=== PATIENT | female | born 1955 | race Caucasian/White ===

== ENCOUNTER 2017-12-03 11:02 | Emergency (ER) | payer OTHER, SELFPAY ==
[2017-12-03 11:05] VITALS: BP 190/86; PULSE 72; RESP 13; TEMP 36.4; O2SAT 98
--- NOTE | 2017-12-03 12:34 | DI.RAD.S_ITS ---
PROCEDURE: XR SHOULDER RT MIN 2V INDICATIONS: shoulder pain TECHNIQUE: 3 views of the shoulder were acquired. COMPARISON: None. FINDINGS: Bones: No fractures or dislocations. No suspicious bony lesions. Visualized ribs appear intact. Degenerative changes are seen, including mild subacromial spurring. Sternotomy wires are seen. Soft tissues: No suspicious soft tissue calcifications. The visualized lung demonstrates an unremarkable appearance. IMPRESSION: Degenerative changes are seen, without an acute bony abnormality identified. If there is point tenderness (or other clinical suspicion for a fracture not seen on these images) then a dedicated CT could be considered for further evaluation, as clinically appropriate. If there is strong clinical suspicion for internal derangement of this joint, please consider a dedicated MRI for further evaluation (assuming that there is no contraindication to MRI). Dictated by: Agustín Hernandez M.D. on 12/03/2017 at 12:01 Approved by: Agustín Hernandez M.D. on 12/03/2017 at 12:02
--- NOTE | 2017-12-03 12:40 | ED_ITS ---
HPI - Extremity Problem <YASIR Gonzalez-BC - Last Filed: 12/03/17 14:58> General Chief complaint: Extremity Problem,Nontraumatic Stated complaint: rt arm pain getting worse Time Seen by Provider: 12/03/17 12:24 Source: patient and family Mode of arrival: ambulatory Limitations: no limitations History of Present Illness HPI Narrative: Patient presents with her chief complaint of right arm pain. She states she had right shoulder pain several years ago and was given a cortisone injection by her PCP. She states her pain was acting up recently so she had another steroid injection done on Sunday. She complains of consistent right arm pain since her steroid injection on Sunday. She states that her whole right arm hurts. She denies any numbness tingling or weakness or swelling or concerns about circulation. She states she has never had x-rays done on her shoulder. She denies any fevers nausea vomiting diarrhea. She has taken naproxen for the pain but has not had anything today. Ice makes the pain worse. Warmth makes the pain better. Pain is worse with movement and pressure. Related Data Home Medications Medication Instructions Recorded Confirmed Januvia 12/03/17 Metoprolol 12/03/17 Prilosec BID 12/03/17 Prozac 12/03/17 atorvastatin 1 tab PO QPM 12/03/17 12/03/17 glipizide 12/03/17 lisinopril 12/03/17 metformin 12/03/17 Previous Rx's Medication Instructions Recorded cyclobenzaprine 10 mg PO TID PRN #20 tab 12/03/17 Allergies Allergy/AdvReac Type Severity Reaction Status Date / Time Sulfa (Sulfonamide Allergy Severe Rash Verified 12/03/17 12:28 Antibiotics) Review of Systems <YASIR Gonzalez-BC - Last Filed: 12/03/17 14:58> Review of Systems GENERAL: Denies chills, fatigue, malaise, fever, sweats. HEENT: Denies sinus pain, ear pain, sore throat, difficulty swallowing, dizziness. RESPIRATORY: Denies dyspnea, cough, wheezing, hemoptysis, sputum. CARDIOVASCULAR: Denies chest pain, palpitations, orthopnea, edema, GASTROINTESTINAL: Denies nausea, vomiting, abdominal pain, diarrhea, constipation, melena. : Denies dysuria, frequency, incontinence, hematuria, urinary retention. MUSCULOSKELETAL: See HPI SKIN: Denies rash, skin lesions, or other NEUROLOGIC: Denies weakness, headache, numbness, change in speech, confusion, seizures, incoordination. PSYCHIATRIC: No concerning psychosocial issues. 12 point review of systems is negative except for those stated above Exam <Aaliyah YASIR Perea-BC - Last Filed: 12/03/17 14:58> Narrative Exam Narrative: GENERAL: This is a well-nourished, well-developed patient, appears uncomfortable holding right armpit HEAD: Atraumatic. Normocephalic. No temporal or scalp tenderness. EYES: Pupils equal round and reactive. Extraocular motions intact. No scleral icterus. No injection or drainage. ENT: Nose without bleeding, purulent drainage or septal hematoma. Throat without erythema, tonsillar hypertrophy or exudate. Uvula midline. Airway patent. NECK: Trachea midline. No JVD or lymphadenopathy. Supple, nontender, no meningeal signs. CARDIOVASCULAR: Regular rate and rhythm without murmurs, gallops, or rubs. RESPIRATORY: Clear to auscultation. Breath sounds equal bilaterally. No wheezes , rales, or rhonchi. GASTROINTESTINAL: Abdomen soft, non-tender, nondistended. No hepato-splenomegaly , or palpable masses. No guarding. EXTREMITIES: Diffuse tenderness to palpation right arm. Right radial pulse is intact. No swelling noted right arm. Patient is able to pronate and supinate right arm. Patient is noted to have decreased flexion of right shoulder she was able to flex to approximately 120?. She is able to hyperextend right shoulder. Capillary refill less than 2 sec all fingers right hand. Strength is intact right hand. BACK: Nontender without deformity or crepitance. No flank tenderness. NEURO: AOx3. SKIN: No rash or erythema. No rash erythema or ecchymosis noted right arm. No evidence of abnormality regarding joint injection site right shoulder pain Initial Vital Signs Initial Vital Signs: Vital Signs Temperature 97.6 F 12/03/17 11:05 Pulse Rate 72 12/03/17 11:05 Respiratory Rate 13 12/03/17 11:05 Blood Pressure 190/86 H 12/03/17 11:05 Pulse Oximetry 98 12/03/17 11:05 <Tammy Noel DO - Last Filed: 12/04/17 08:01> Initial Vital Signs Initial Vital Signs: Vital Signs Temperature 97.6 F 12/03/17 11:05 Pulse Rate 72 12/03/17 11:05 Respiratory Rate 13 12/03/17 11:05 Blood Pressure 190/86 H 12/03/17 11:05 Pulse Oximetry 98 12/03/17 11:05 Course <SANDI Gonzalez - Last Filed: 12/03/17 14:58> Orders Ordered: Discontinued Medications Cyclobenzaprine HCl (Flexeril) 5 mg PO NOW ONE Stop: 12/03/17 12:35 Last Admin: 12/03/17 13:07 Dose: 5 mg Ketorolac Tromethamine (Toradol) 30 mg IM NOW ONE Stop: 12/03/17 12:35 Last Admin: 12/03/17 13:07 Dose: 30 mg Patient received Flexeril and Toradol in the emergency department. She stated this helped her improve her pain a lot. She noted the range of motion was increased after medication. Vital Signs - 8 hr 12/03/17 11:05 12/03/17 14:21 Temperature 97.6 F Pulse Rate 72 66 Respiratory Rate 13 Blood Pressure 190/86 H Blood Pressure [Left Arm] 186/81 H Pulse Oximetry 98 97 <Tmamy Noel DO - Last Filed: 12/04/17 08:01> Orders Ordered: Discontinued Medications Cyclobenzaprine HCl (Flexeril) 5 mg PO NOW ONE Stop: 12/03/17 12:35 Last Admin: 12/03/17 13:07 Dose: 5 mg Ketorolac Tromethamine (Toradol) 30 mg IM NOW ONE Stop: 12/03/17 12:35 Last Admin: 12/03/17 13:07 Dose: 30 mg Vital Signs - 8 hr 12/03/17 11:05 12/03/17 14:21 Temperature 97.6 F Pulse Rate 72 66 Respiratory Rate 13 Blood Pressure 190/86 H Blood Pressure [Left Arm] 186/81 H Pulse Oximetry 98 97 MDM - Extremity (Nontraumatic) <SANDI Gonzalez - Last Filed: 12/03/17 14:58> Imaging Data shoulder xray : Radiologist's impression: ROCEDURE: XR SHOULDER RT MIN 2V INDICATIONS: shoulder pain TECHNIQUE: 3 views of the shoulder were acquired. COMPARISON: None. FINDINGS: Bones: No fractures or dislocations. No suspicious bony lesions. Visualized ribs appear intact. Degenerative changes are seen, including mild subacromial spurring. Sternotomy wires are seen. Soft tissues: No suspicious soft tissue calcifications. The visualized lung demonstrates an unremarkable appearance. IMPRESSION: Degenerative changes are seen, without an acute bony abnormality identified. If there is point tenderness (or other clinical suspicion for a fracture not seen on these images) then a dedicated CT could be considered for further evaluation, as clinically appropriate. If there is strong clinical suspicion for internal derangement of this joint, please consider a dedicated MRI for further evaluation (assuming that there is no contraindication to MRI). Dictated by: Agustín Hernandez M.D. on 12/03/2017 at 12:01 Approved by: Agustín Hernandez M.D. on 12/03/2017 at 12:02 MDM Narrative Medical decision making narrative: Patient presents with chief complaint of right arm pain after steroid injection done by PCP on Sunday. I did a x-ray as she states she has never had one before. She has good range of motion and no signs of systemic symptoms ruling out a septic joint. Her pain appears to have started with the steroid injection. She has no swelling or no signs of decreased circulation. Her pain much improved after the Toradol as well as the Flexeril. I encourage follow-up primary care. I did discuss that steroid injections can worsened pain for the improved the pain. She had no questions or concerns upon discharge. Discussed return precautions of concerns for stroke , SD, neurological compromise. Discharge Plan Departure Patient Disposition: Home Clinical Impression: Arm pain Discharge Date/Time: 12/03/17 14:29 Interventions: ED Discharge Assessment Last Done: 12/03/17 14:28 Instructions: How To Perform RICE (Rest, Ice, Compress, Elevate), DI for Arm Pain, Joint Injection Activity Restrictions/Additional Instructions: I am given you a prescription of a muscle relaxer to use as needed. Please monitor for fever, worsening or no improvement. Please follow-up with primary care provider. He can also take naproxen twice a day. Please do not take that until 8 hr after the Toradol injection we gave you in the emergency department. Monitor for joint swelling, worsening pain, numbness or tingling. You can also use heat or ice as needed. Monitor for signs and symptoms of infection including fever, redness at the injection sites etc. Prescriptions: New cyclobenzaprine 10 mg tablet 10 mg PO TID PRN (Reason: muscle spasm) Qty: 20 RF: 0 No Action Januvia RF: 0 Metoprolol RF: 0 Prilosec BID RF: 0 Prozac RF: 0 atorvastatin 1 tab PO QPM RF: 0 glipizide RF: 0 lisinopril RF: 0 metformin RF: 0 Referrals: Dillon Castanon MD [Primary Care Provider] - <Tammy Noel DO - Last Filed: 12/04/17 08:01> Cosign ED Attending Cosignature Attestation: I was immediately available in the department for consultation. Documentation has been reviewed. I agree with assessment and plan.
[2017-12-03] MEDS: KETOROLAC 60 MG/2 ML VIAL 30 MG IM (13:07)
[2017-12-03] MEDS: CYCLOBENZAPRINE 5 MG TABLET PO (13:07)
[2017-12-03 14:21] VITALS: BP 186/81; PULSE 66; O2SAT 97
--- NOTE | 2017-12-06 16:19 | PC.NURSE ---
follow up call, n/a
== END 2017-12-03 14:29 | disposition home or self-care (01) ==
PROVIDERS: Emergency Provider Nurse Practitioner Family; PCP Family Medicine
DX: M79.601 Pain in right arm (principal)
CPT/HCPCS: 73030; 96372; 99283; J1885

== ENCOUNTER → 2018-04-24 08:46 | Outpatient (CLI) | payer OTHER, SELFPAY ==
--- NOTE | 2018-04-24 | DI.MRI.S_ITS ---
PROCEDURE: MR SHOULDER RT WO CON INDICATIONS: ACUTE PAIN OF RIGHT SHOULDER TECHNIQUE: Noncontrast oblique coronal T2 fast spin echo with fat saturation, oblique sagittal T1 spin echo and T2 fast spin echo with fat saturation, axial T1 spin echo and T2 fast spin echo with fat saturation through the shoulder. COMPARISON: None. FINDINGS: Image quality: Excellent. Rotator cuff: Supraspinatus tendinopathy with partial-thickness articular and bursal sided tear at the critical zone/footprint. Cannot entirely exclude pinpoint full-thickness perforation in particular image 9 series 8. No large full-thickness or retracted defect is seen. Infraspinatus tendinopathy, with interstitial tearing and bursal surface fraying. There is also partial-thickness articular sided tear. Teres minor appears intact. Subscapularis tendon is mildly thickened with low-grade bursal and articular surface fraying. There is atrophy of the supraspinatus muscle. Diffuse fatty infiltration of the rotator cuff musculature. Bones and bursae: No bone marrow contusions or fractures. Moderate acromioclavicular joint degeneration. The acromion demonstrates conventional anatomy, without an os acromiale. Moderate subacromial/subdeltoid bursal fluid. Capsule and soft tissues: No discrete intrasubstance fluid signal intensity to suggest labral tear. There is a blunted appearance of the posterior labrum which is probably age-appropriate. No definite posterior subluxation of the humeral head relative to the glenoid. There is mild hypertrophic appearance of the anteroinferior labrum which could be labrocapsuloligamentous variation, versus chronic tear with scarring. The long head of the biceps tendon demonstrates normal location and morphology. The rotator interval appears normal, without fibrosis. The coracohumeral ligament is normal in thickness. IMPRESSION: Supraspinatus tendinopathy with partial thickness articular and bursal sided tear, and possible pinpoint full-thickness perforation although no large or retracted full-thickness defect. Infraspinatus tendinopathy with interstitial tearing, bursal surface fraying and partial-thickness articular sided tear. Subscapularis tendinopathy with low-grade bursal and articular surface fraying. Atrophy of the supraspinatus muscle. Moderate subacromial/subdeltoid bursitis. Ill-defined blunting of the posterior labrum which could be age-appropriate degeneration. Please correlate clinically. Dictated by: Danny Wayne M.D. on 04/24/2018 at 11:00 Approved by: Danny Wayne M.D. on 04/24/2018 at 11:09
== END ==
PROVIDERS: PCP Family Medicine; Visit Provider Orthopaedic Surgery
DX: M25.511 Pain in right shoulder (principal); M75.111 Incomplete rotator cuff tear or rupture of right shoulder, not specified as traumatic; M75.51 Bursitis of right shoulder; M62.521 Muscle wasting and atrophy, not elsewhere classified, right upper arm
CPT/HCPCS: 73221

== ENCOUNTER → 2018-09-25 12:38 | Outpatient (CLI) | payer OTHER, SELFPAY ==
--- NOTE | 2018-09-25 | DI.MRI.S_ITS ---
PROCEDURE: MR SHOULDER RT W CON INDICATIONS: Complete rotator cuff tear or rupture of right kike TECHNIQUE: After the administration of 12 mL of dilute intra-articular Gadolinium contrast, oblique coronal T1 and T2 spin echo with fat saturation, oblique sagittal T1 spin echo with and without fat saturation, oblique sagittal T2 fast spin echo with fat saturation, axial T1 spin echo with fat saturation through the shoulder. COMPARISON: [facility], MR, MR SHOULDER RT WO CON, 04/24/2018, 9:37. FINDINGS: Image quality: Diagnostic Rotator cuff: No definite full-thickness tear the rotator cuff is present. However, there is an irregular moderate to high grade articular surface partial thickness tear evident involving the distal supraspinatus and infraspinatus tendons, which may partly propagate along the infraspinatus myotendinous junction. A similar appearance is also present involving the subscapularis tendon. The teres minor tendon is intact. Mild rotator cuff muscle atrophy is relatively symmetric. Bones and bursae: No acute fracture, dislocation, or suspicious osseous lesion is identified involving the osseous structures of the right shoulder. Postoperative changes along the anterior aspect of the greater tuberosity of the humeral head is present, suggesting either biceps tenodesis or rotator cuff repair. There mild degenerative changes of the glenohumeral joint. Postoperative changes of the acromio clavicular joint appear to be present. There is adequate distention of the glenohumeral joint with the injected contrast. No loose intra-articular joint bodies are identified. None of the intra-articular contrast is definitely seen extending into the subacromial subdeltoid bursa to suggest a nonvisualized full-thickness tear of the rotator cuff. Capsule and soft tissues: Blunting along the free edge of the entire posterior labrum is identified, suspicious for a posterior labral tear versus partial resection of the posterior labrum. No detached labral fragment or large paralabral cysts are evident. The long head of the biceps tendon is not clearly evident attaching to the biceps anchor, suggesting interval biceps tenodesis or full-thickness tear. This tendon is not seen within the bicipital groove and it probably is retracted beyond the bicipital groove. No acute injuries are suspected involving the glenohumeral ligaments. IMPRESSION: 1. Moderate to high-grade articular surface partial-thickness tearing of the rotator cuff tendons is more prominent involving the supraspinatus and subscapularis tendons. There may be an interstitial/delaminating partial-thickness component extending along the infraspinatus myotendinous junction. 2. The biceps tendon is not seen within the bicipital groove and appears to be retracted beyond the bicipital groove, distally. There may have been interval biceps tenodesis with tearing of the reattached tendon. Please correlate clinically. 3. Blunting along the free edge of the posterior labrum may be postoperative or related to degenerative labral tearing. 4. Interval postoperative changes of the acromio clavicular joint. 5. Mild degenerative changes of the glenohumeral joint. Dictated by: Arjun Gill M.D. on 09/25/2018 at 15:23 Approved by: Arjun Gill M.D. on 09/25/2018 at 15:27
--- NOTE | 2018-09-25 | DI.RAD.S_ITS ---
PROCEDURE: FL SHOULDER INJECTION MR/CT RT INDICATIONS: Complete rotator cuff tear or rupture of right kike TECHNIQUE: The indications, alternatives, benefits, risks, and complications of the procedure were explained to the patient. Written informed consent was obtained and placed in the chart. The shoulder was examined fluoroscopically and a site for needle placement chosen for entry into the glenohumeral joint from an anterior approach. The skin was prepped and draped in a sterile fashion, and 1% lidocaine infiltrated from skin down to joint capsule. A spinal needle was inserted into the glenohumeral joint, and a small amount of iodinated contrast media injected to confirm intra-articular placement of the needle tip. This was followed by approximately 12 mL dilute solution of a gadolinium containing MR contrast agent. The needle was removed and a dressing was applied. The patient was given postprocedural instructions and sent to the MR suite for MR imaging. FINDINGS: A single fluoroscopic spot image demonstrates intra-articular location of injected iodinated contrast. IMPRESSION: Successful fluoroscopically guided administration of dilute Gadolinium solution into the shoulder joint for MR arthrogram. Dictated by: Danny Wayne M.D. on 09/25/2018 at 16:02 Approved by: Danny Wayne M.D. on 09/25/2018 at 16:04
== END ==
PROVIDERS: PCP Family Medicine; Visit Provider Orthopaedic Surgery
DX: M75.111 Incomplete rotator cuff tear or rupture of right shoulder, not specified as traumatic (principal)
CPT/HCPCS: 23350; 73222; 77002

== ENCOUNTER → 2019-03-04 13:51 | Outpatient (CLI) | payer MEDICARE, OTHER, SELFPAY ==
[2019-03-04 15:06] LABS: Add Manual Diff / Slide Review NO; Basophils Absolute Auto 100 /uL (0-100); Basophils Percent Auto 0.9 % (0-2); Eosinophils Absolute Auto 300 /uL (0-450); Eosinophils Percent Auto 3.1 % (2-4); Hematocrit 47.1 % (36-46); Hemoglobin 15.6 g/dL (12.0-16.0); Lymphocytes Absolute Auto 2300 /uL (1100-4500); Lymphocytes Percent Auto 27.8 % (25-40); Mean Corpuscular HGB Conc 33.2 % (30-36); Mean Corpuscular Hemoglobin 30.4 PG (26-34); Mean Corpuscular Volume 91.7 fL (80-100); Monocytes Absolute Auto 700 /uL (0-900); Monocytes Percent Auto 7.9 % (3-14); Neutrophils Absolute Auto 5100 /uL (1500-7000); Neutrophils Percent Auto 60.3 % (50-75); Platelet Count 218 X10^3/uL (150-400); Red Blood Cell Count 5.14 X10^6/uL (4.0-5.2); Red Cell Distribution Width 14.3 % (11.6-14.8); White Blood Cell Count 8.4 X10^3/uL (4.5-11.0)
[2019-03-04 16:09] LABS: Hemoglobin A1C% w Est Avg Glu 10.2 % (4.0-6.0)
== END ==
PROVIDERS: PCP Family Medicine; Visit Provider Podiatrist
DX: Z01.818 Encounter for other preprocedural examination (principal); Z01.812 Encounter for preprocedural laboratory examination; R73.9 Hyperglycemia, unspecified
CPT/HCPCS: 36415; 83036; 85025; 93005

== ENCOUNTER 2019-05-08 13:21 | Inpatient (IN) | payer OTHER, MEDICARE, SELFPAY ==
[2019-05-08] VITALS (11 sets, daily range): BP systolic 89–133; BP diastolic 50–76; PULSE 67–95; RESP 13–28; TEMP 36.3–36.8; O2SAT 91–96; BMI 31.7
--- NOTE | 2019-05-08 14:00 | DI.RAD.S_ITS ---
PROCEDURE: XR ACUTE ABDOMEN SERIES INDICATIONS: sob, abd pain TECHNIQUE: One view chest and two views of the abdomen were acquired. COMPARISON: None. FINDINGS: Surgical changes and devices: Median sternotomy wires are seen. Surgical clips are noted in gallbladder fossa. Chest: Lungs are clear. Heart size is normal. No pleural effusions. No pneumoperitoneum. Abdomen: Bowel gas pattern is normal. No suspicious calcifications. Visualized solid organ contours appear normal. Bones: No suspicious bony lesions. IMPRESSION: No evidence of bowel obstruction or gross free air. No acute cardiopulmonary pathology. Dictated by: Jani Chowdhury M.D. on 05/08/2019 at 15:51 Approved by: Jani Chowdhury M.D. on 05/08/2019 at 15:54
[2019-05-08 14:15] LABS: Add Manual Diff / Slide Review NO; Basophils Absolute Auto 100 /uL (0-100); Basophils Percent Auto 0.5 % (0-2); Eosinophils Absolute Auto 0 /uL (0-450); Eosinophils Percent Auto 0.4 % (2-4); Hematocrit 45.6 % (36-46); Hemoglobin 15.3 g/dL (12.0-16.0); Lymphocytes Absolute Auto 1500 /uL (1100-4500); Mean Corpuscular HGB Conc 33.6 % (30-36); Mean Corpuscular Hemoglobin 30.5 PG (26-34); Mean Corpuscular Volume 90.7 fL (80-100); Monocytes Absolute Auto 1100 /uL (0-900); Monocytes Percent Auto 9.8 % (3-14); Neutrophils Absolute Auto 8100 /uL (1500-7000); Neutrophils Percent Auto 75.3 % (50-75); Platelet Count 277 X10^3/uL (150-400); Red Blood Cell Count 5.02 X10^6/uL (4.0-5.2); White Blood Cell Count 10.8 X10^3/uL (4.5-11.0)
[2019-05-08] MEDS: ONDANSETRON 4 MG/2 ML INJ IV ×2 (14:25→20:01)
[2019-05-08] MEDS: SODIUM CHLORIDE 0.9% 500 ML 1000 ML IV (14:25)
[2019-05-08 14:28] LABS: Amylase 74 U/L (30-110); Lipase 101 U/L (23-300)
[2019-05-08 14:30] LABS: Alanine Aminotransferase 37 IU/L (<35); Albumin 4.3 g/dL (3.5-5.0); Albumin Globulin Ratio 1.2 (1.0-2.8); Alkaline Phosphatase 99 U/L (38-126); Aspartate Aminotransferase 44 IU/L (14-36); BUN Creatinine Ratio 16.4 (6-22); Bilirubin Total 0.7 mg/dL (0.2-1.3); Blood Urea Nitrogen 10 mg/dL (7-17); Calcium 9.4 mg/dL (8.4-10.2); Carbon Dioxide 21 mmol/L (22-32); Chloride 104 mmol/L (98-107); Estimated Glomerular Filt Rate > 60.0 mL/min (>60); Globulin 3.5 g/dL (1.7-4.1); Glucose 125 mg/dL (80-110); Lactate (Lactic Acid) 1.9 mmol/L (0.7-2.1); Potassium 3.6 mmol/L (3.4-5.1); Sodium 137 mmol/L (137-145); Total Protein 7.8 g/dL (6.3-8.2)
[2019-05-08 14:37] LABS: Magnesium 0.9 mg/dL (1.6-2.3)
--- NOTE | 2019-05-08 14:52 | ED.GENADULT ---
HPI - General Adult <Juan Pablo Sadler [employer] - Last Filed: 05/08/19 20:21> General Chief complaint: Upper Respiratory Symptoms Stated complaint: Sick For 2 Weeks Time Seen by Provider: 05/08/19 13:46 Source: patient and family Mode of arrival: Ambulatory Limitations: no limitations History of Present Illness HPI narrative: The patient is a 64-year-old female nonsmoker with history of hypertrophic cardiomyopathy, myectomy, hypertension, hyper lipidemia who presents with her for chief complaint of general malaise for the past 2-3 weeks. She states it started several weeks ago when she thought she had the flu, she had sore throat, then cough, the general malaise. The past week she has developed loose stools. She states she feels short of breath. She denies any chest pain. She denies any fevers muscle aches or chills. She does complain of fatigue. She states that she has abdominal cramping with loose stools, but no other abdominal symptoms, though she does complain of nausea upon arrival. She has not taken anything at home to feel better. She has not followed up with primary care provider who is Dr. Castanon. Her field case manager is Dr. Turk with [facility]. She denies any falls or trauma. She denies any dysuria urgency or frequency. She has history of a cholecystectomy, appendectomy. She does not take any blood thinners. She states that she used to be on diuretics, but has not been on them in years Related Data Home Medications Medication Instructions Recorded Confirmed atorvastatin 40 mg PO QPM 12/03/17 05/08/19 fluoxetine 20 mg PO BID 12/03/17 05/08/19 glipizide 2.5 mg PO DAILY 12/03/17 05/08/19 lisinopril 20 mg PO DAILY 12/03/17 05/08/19 metformin 1,000 mg PO QAM 12/03/17 05/08/19 metoprolol tartrate 25 mg PO BID 12/03/17 05/08/19 omeprazole 20 mg PO BID 12/03/17 05/08/19 nortriptyline 10 mg PO BEDTIME 12/04/17 05/08/19 exenatide microspheres 2 mg SUBCUT QWEEK 05/08/19 05/08/19 Previous Rx's Medication Instructions Recorded cyclobenzaprine 10 mg PO TID PRN #20 tab 12/03/17 Allergies Allergy/AdvReac Type Severity Reaction Status Date / Time Sulfa (Sulfonamide Allergy Severe Rash Verified 05/08/19 13:31 Antibiotics) Review of Systems <SANDI Gonzalez - Last Filed: 05/08/19 20:21> Review of Systems Narrative: GENERAL: See HPI HEENT: See HPI RESPIRATORY: See HPI CARDIOVASCULAR: See HPI GASTROINTESTINAL: See HPI : Denies dysuria, frequency, incontinence, hematuria, urinary retention. MUSCULOSKELETAL: denies weakness, joint pain, or bony pain SKIN: Denies rash, skin lesions, or other NEUROLOGIC: Denies weakness, headache, numbness, change in speech, confusion, seizures, incoordination. PSYCHIATRIC: No concerning psychosocial issues. 12 point review of systems is negative except for those stated above Patient History <SANDI Gonzalez - Last Filed: 05/08/19 20:21> Medical History CAD in [place] artery (Acute) Cardiomyopathy, hypertrophic (Acute) Diabetes (Acute) Edema (Acute) HLD (hyperlipidemia) (Acute) HTN (hypertension) (Acute) Mild mitral insufficiency (Acute) Myocardial infarction (Acute) Polycythemia (Acute) Presence of drug-eluting stent in right coronary artery (Acute ~03/2010) Raynauds phenomenon (Acute) Right shoulder pain (Acute) Surgical History (Updated 05/08/19 @ 16:39 by Sara Trimble RN) H/O ventricular septal myectomy (Acute) Family History (Updated 05/08/19 @ 22:02 by Yady Fan MD) Daughter Hypertrophic cardiomyopathy Father Myocardial infarction involving right coronary artery Mother Cancer Social History household members: spouse Smoking Status: Never smoker Smoking Status: Never smoker alcohol intake frequency: holidays/special occasions only Substance Use Type: does not use Exam <SANDI Gonzalez - Last Filed: 05/08/19 20:21> Narrative Exam Narrative: GENERAL: Elderly female, appears fatigued but in no acute distress HEAD: Atraumatic. Normocephalic. No temporal or scalp tenderness. EYES: Pupils equal round and reactive. Extraocular motions intact. No scleral icterus. No injection or drainage. ENT: Nose without bleeding, purulent drainage or septal hematoma. Throat without erythema, tonsillar hypertrophy or exudate. Uvula midline. Airway patent. NECK: Trachea midline. No JVD or lymphadenopathy. Supple, nontender, no meningeal signs. CARDIOVASCULAR: Regular rate and regular rhythm RESPIRATORY: Decreased bilaterally to auscultation Breath sounds equal bilaterally. Crackles at bilateral bases. Occasional dry cough. Slight wheezes noted expiratory bilateral bases. No rales or rhonchi noted. GASTROINTESTINAL: Abdomen soft, non-tender, nondistended. No hepato-splenomegaly, or palpable masses. No guarding. Active bowel sounds all 4 quadrants. EXTREMITIES: No clubbing, cyanosis, or edema. No joint tenderness, effusion, or edema noted. No edema noted bilaterally lower extremities. Brace noted on right lower leg. BACK: Nontender without deformity or crepitance. No flank tenderness. NEURO: AOx3. SKIN: No rash or erythema on visible skin Initial Vital Signs Initial Vital Signs: Vital Signs Temperature 97.6 F 05/08/19 13:31 Pulse Rate 95 H 05/08/19 13:31 Respiratory Rate 15 05/08/19 13:31 Blood Pressure 123/66 05/08/19 13:31 Pulse Oximetry 93 05/08/19 13:31 <Nick Abreu MD - Last Filed: 05/09/19 07:55> Initial Vital Signs Initial Vital Signs: Vital Signs Temperature 97.6 F 05/08/19 13:31 Pulse Rate 95 H 05/08/19 13:31 Respiratory Rate 15 05/08/19 13:31 Blood Pressure 123/66 05/08/19 13:31 Pulse Oximetry 93 05/08/19 13:31 Course <SANDI Gonzalez - Last Filed: 05/08/19 20:21> Orders Ordered: Acetaminophen (Tylenol) 650 mg PO Q6HR PRN PRN Reason: Fever/Mild Pain (1-3) Hydrocodone Bitart/Acetaminophen ([place] 5/325) 1 tab PO Q4HR PRN PRN Reason: Pain, Moderate (4-6) Atorvastatin Calcium (Lipitor) 40 mg PO BEDTIME COUNTS INCLUDE 234 BEDS AT THE [facility] Last Admin: 05/09/19 01:12 Dose: Not Given Documented by: ACE Bisacodyl (Dulcolax) 10 mg DC DAILY PRN PRN Reason: Constipation Dextrose (D50w) 25 gm IV PRN PRN; Protocol PRN Reason: Hypoglycemia Docusate Sodium (Colace) 100 mg PO BID PHUONG Enoxaparin Sodium (Lovenox) 40 mg SUBCUT DAILY PHUONG Fluoxetine HCl (Prozac) 20 mg PO BID PHUONG Hydromorphone HCl (Dilaudid) 0.5 mg IV Q6H PRN PRN Reason: Pain, Moderate (4-6) Last Admin: 05/09/19 06:23 Dose: 0.5 mg Documented by: ACE Potassium Chloride/Dextrose/Sod Cl (Dextrose 5%-0.45%Ns W/Kcl 20meq) 1,000 mls @ 100 mls/hr IV CONT PHUONG Last Admin: 05/09/19 00:06 Dose: 100 mls/hr Documented by: ACE Insulin Aspart (Novolog Flexpen) 0 unit SUBCUT ACHS PHUONG; Protocol Lisinopril (Zestril) 20 mg PO DAILY COUNTS INCLUDE 234 BEDS AT [facility] Metoprolol Tartrate (Lopressor) 25 mg PO BID COUNTS INCLUDE 234 BEDS AT THE [facility] Naloxone HCl (Narcan) 0.2 mg IV Q2MIN PRN PRN Reason: Opiate Reversal Ondansetron HCl (Zofran) 4 mg IV Q8HR PRN PRN Reason: Nausea And Vomiting Pantoprazole Sodium (Protonix) 40 mg PO 0700 COUNTS INCLUDE 234 BEDS AT [facility] Discontinued Medications Furosemide (Lasix) 40 mg IV NOW ONE Stop: 05/08/19 16:25 Last Admin: 05/08/19 16:51 Dose: 40 mg Documented by: JONATHAN Sodium Chloride (Normal Saline 0.9%) 500 mls @ 1,000 mls/hr IV BOLUS ONE Stop: 05/08/19 14:31 Last Infusion: 05/08/19 15:12 Dose: 0 mls/hr Documented by: Admin: 05/08/19 14:25 Dose: 1,000 mls/hr Documented by: JONATHAN Magnesium Sulfate (Magnesium Sulfate) 2 gm in 50 mls @ 25 mls/hr IV NOW ONE Stop: 05/08/19 16:37 Last Infusion: 05/08/19 17:50 Dose: 0 mls/hr Documented by: JONATHAN Cosigned by: ROSIE Admin: 05/08/19 15:03 Dose: 25 mls/hr Documented by: MAK Cosigned by: JONATHAN Sodium Chloride (Normal Saline 0.9%) 1,000 mls @ 150 mls/hr IV BOLUS ONE Stop: 05/08/19 21:26 Last Infusion: 05/09/19 00:11 Dose: 0 mls/hr Documented by: Admin: 05/08/19 15:00 Dose: 150 mls/hr Documented by: MAK Ceftriaxone Sodium/Dextrose (Rocephin) 1 gm in 50 mls @ 100 mls/hr IV NOW ONE Stop: 05/08/19 20:15 Last Admin: 05/08/19 20:30 Dose: Not Given Documented by: THERESA Sodium Chloride (Normal Saline 0.9%) 1,000 mls @ 100 mls/hr IV CONT PHUONG Last Admin: 05/09/19 01:14 Dose: Not Given Documented by: ACE Ondansetron HCl (Zofran) 4 mg IV NOW ONE Stop: 05/08/19 14:03 Last Admin: 05/08/19 14:25 Dose: 4 mg Documented by: JONATHAN Ondansetron HCl (Zofran) 4 mg IV NOW ONE Stop: 05/08/19 19:47 Last Admin: 05/08/19 20:01 Dose: 4 mg Documented by: JONATHAN Vital Signs Vital signs: Vital Signs - 8 hr 05/08/19 13:31 05/08/19 14:46 05/08/19 15:12 Temperature 97.6 F 98.3 F Pulse Rate 95 H 77 Respiratory Rate 15 28 H Blood Pressure 123/66 Blood Pressure [Left Arm] 127/65 Pulse Oximetry 93 94 05/08/19 16:00 05/08/19 17:00 05/08/19 18:00 Temperature Pulse Rate 74 69 74 Respiratory Rate 20 18 26 H Blood Pressure Blood Pressure [Left Arm] 102/58 L 96/50 L 101/54 L Pulse Oximetry 95 95 93 05/08/19 18:30 05/08/19 19:00 Temperature Pulse Rate 67 71 Respiratory Rate 17 24 Blood Pressure Blood Pressure [Left Arm] 89/51 L 107/53 L Pulse Oximetry 91 92 <Nick Abreu MD - Last Filed: 05/09/19 07:55> Orders Ordered: Acetaminophen (Tylenol) 650 mg PO Q6HR PRN PRN Reason: Fever/Mild Pain (1-3) Hydrocodone Bitart/Acetaminophen ([place] 5/325) 1 tab PO Q4HR PRN PRN Reason: Pain, Moderate (4-6) Atorvastatin Calcium (Lipitor) 40 mg PO BEDTIME COUNTS INCLUDE 234 BEDS AT [facility] Last Admin: 05/09/19 01:12 Dose: Not Given Documented by: ACE Bisacodyl (Dulcolax) 10 mg DC DAILY PRN PRN Reason: Constipation Dextrose (D50w) 25 gm IV PRN PRN; Protocol PRN Reason: Hypoglycemia Docusate Sodium (Colace) 100 mg PO BID COUNTS INCLUDE 234 BEDS AT [facility] Enoxaparin Sodium (Lovenox) 40 mg SUBCUT DAILY COUNTS INCLUDE 234 BEDS AT [facility] Fluoxetine HCl (Prozac) 20 mg PO BID COUNTS INCLUDE 234 BEDS AT [facility] Hydromorphone HCl (Dilaudid) 0.5 mg IV Q6H PRN PRN Reason: Pain, Moderate (4-6) Last Admin: 05/09/19 06:23 Dose: 0.5 mg Documented by: ACE Potassium Chloride/Dextrose/Sod Cl (Dextrose 5%-0.45%Ns W/Kcl 20meq) 1,000 mls @ 100 mls/hr IV CONT COUNTS INCLUDE 234 BEDS AT [facility] Last Admin: 05/09/19 00:06 Dose: 100 mls/hr Documented by: ACE Insulin Aspart (Novolog Flexpen) 0 unit SUBCUT ACHS COUNTS INCLUDE 234 BEDS AT [facility]; Protocol Lisinopril (Zestril) 20 mg PO DAILY COUNTS INCLUDE 234 BEDS AT [facility] Metoprolol Tartrate (Lopressor) 25 mg PO BID COUNTS INCLUDE 234 BEDS AT [facility] Naloxone HCl (Narcan) 0.2 mg IV Q2MIN PRN PRN Reason: Opiate Reversal Ondansetron HCl (Zofran) 4 mg IV Q8HR PRN PRN Reason: Nausea And Vomiting Pantoprazole Sodium (Protonix) 40 mg PO 0700 COUNTS INCLUDE 234 BEDS AT [facility] Discontinued Medications Furosemide (Lasix) 40 mg IV NOW ONE Stop: 05/08/19 16:25 Last Admin: 05/08/19 16:51 Dose: 40 mg Documented by: JONATHAN Sodium Chloride (Normal Saline 0.9%) 500 mls @ 1,000 mls/hr IV BOLUS ONE Stop: 05/08/19 14:31 Last Infusion: 05/08/19 15:12 Dose: 0 mls/hr Documented by: Admin: 05/08/19 14:25 Dose: 1,000 mls/hr Documented by: JONATHAN Magnesium Sulfate (Magnesium Sulfate) 2 gm in 50 mls @ 25 mls/hr IV NOW ONE Stop: 05/08/19 16:37 Last Infusion: 05/08/19 17:50 Dose: 0 mls/hr Documented by: JONATHAN Cosigned by: ROSIE Admin: 05/08/19 15:03 Dose: 25 mls/hr Documented by: MAK Cosigned by: JONATHAN Sodium Chloride (Normal Saline 0.9%) 1,000 mls @ 150 mls/hr IV BOLUS ONE Stop: 05/08/19 21:26 Last Infusion: 05/09/19 00:11 Dose: 0 mls/hr Documented by: Admin: 05/08/19 15:00 Dose: 150 mls/hr Documented by: MAK Ceftriaxone Sodium/Dextrose (Rocephin) 1 gm in 50 mls @ 100 mls/hr IV NOW ONE Stop: 05/08/19 20:15 Last Admin: 05/08/19 20:30 Dose: Not Given Documented by: THERESA Sodium Chloride (Normal Saline 0.9%) 1,000 mls @ 100 mls/hr IV CONT PHUONG Last Admin: 05/09/19 01:14 Dose: Not Given Documented by: ACE Ondansetron HCl (Zofran) 4 mg IV NOW ONE Stop: 05/08/19 14:03 Last Admin: 05/08/19 14:25 Dose: 4 mg Documented by: JONATHAN Ondansetron HCl (Zofran) 4 mg IV NOW ONE Stop: 05/08/19 19:47 Last Admin: 05/08/19 20:01 Dose: 4 mg Documented by: JONATHAN Vital Signs Vital signs: Vital Signs - 8 hr 05/08/19 13:31 05/08/19 14:46 05/08/19 15:12 Temperature 97.6 F 98.3 F Pulse Rate 95 H 77 Respiratory Rate 15 28 H Blood Pressure 123/66 Blood Pressure [Left Arm] 127/65 Pulse Oximetry 93 94 05/08/19 16:00 05/08/19 17:00 05/08/19 18:00 Temperature Pulse Rate 74 69 74 Respiratory Rate 20 18 26 H Blood Pressure Blood Pressure [Left Arm] 102/58 L 96/50 L 101/54 L Pulse Oximetry 95 95 93 05/08/19 18:30 05/08/19 19:00 Temperature Pulse Rate 67 71 Respiratory Rate 17 24 Blood Pressure Blood Pressure [Left Arm] 89/51 L 107/53 L Pulse Oximetry 91 92 Medical Decision Making <Juan Pablo Sadler, [employer] - Last Filed: 05/08/19 20:21> Lab Data Result diagrams: 05/09/19 05:15 05/09/19 05:15 Labs: Lab Results 05/08/19 05/08/19 05/08/19 Range/Units 14:03 14:03 14:03 WBC 10.8 (4.5-11.0) X10^3/uL RBC 5.02 (4.0-5.2) X10^6/uL Hgb 15.3 (12.0-16.0) g/dL Hct 45.6 (36-46) % MCV 90.7 (80-100) fL MCH 30.5 (26-34) PG MCHC 33.6 (30-36) % RDW 14.0 (11.6-14.8) % Plt Count 277 (150-400) X10^3/uL Neut % (Auto) 75.3 H (50-75) % Lymph % (Auto) 14.0 L (25-40) % [place] % (Auto) 9.8 (3-14) % Eos % (Auto) 0.4 L (2-4) % Baso % (Auto) 0.5 (0-2) % Neut # (Auto) 8100 H (6020-3709) /uL Lymph # (Auto) 1500 (0299-2815) /uL [place] # (Auto) 1100 H (0-900) /uL Eos # (Auto) 0 (0-450) /uL Baso # (Auto) 100 (0-100) /uL Sodium 137 (137-145) mmol/L Potassium 3.6 (3.4-5.1) mmol/L Chloride 104 (98-107) mmol/L Carbon Dioxide 21 L (22-32) mmol/L BUN 10 (7-17) mg/dL Creatinine 0.61 (0.52-1.04) mg/dL Estimated GFR > 60.0 (>60) mL/min BUN/Creatinine Ratio 16.4 (6-22) Glucose 125 H (80-110) mg/dL Lactate (0.7-2.1) mmol/L Calcium 9.4 (8.4-10.2) mg/dL Magnesium 0.9 L* (1.6-2.3) mg/dL Total Bilirubin 0.7 (0.2-1.3) mg/dL AST 44 H (14-36) IU/L ALT 37 H (<35) IU/L Alkaline Phosphatase 99 (38-126) U/L Total Creatine Kinase (30-135) U/L CK-MB (CK-2) CK-MB (CK-2) Rel Index Troponin I (0.01-0.034) ng/mL NT-Pro-B Natriuret Pep 1670 H (<125) pg/mL Total Protein 7.8 (6.3-8.2) g/dL Albumin 4.3 (3.5-5.0) g/dL Globulin 3.5 (1.7-4.1) g/dL Albumin/Globulin Ratio 1.2 (1.0-2.8) Amylase (30-110) U/L Lipase (23-300) U/L Procalcitonin < 0.05 (<0.5) ng/mL Ur Bilirubin Confirm (Negative) Urine RBC (0-5/HPF) Urine WBC (0-5/HPF) Ur Squamous Epith Cells (0-5/HPF) Ur Transition Epith Cell (0-5/HPF) Urine Bacteria (None) Hyaline Casts (None) Granular Casts (None) WBC Casts (None) Urine Mucus (Negative) Ur Culture Indicated? Gastric Fluid pH Gastric Occult Blood Stool Occult Blood (Negative) Stl C. cayetanensis PCR (Not Detect) Stool Rotavirus (PCR) (Not Detect) Stool Adenovirus (PCR) (Not Detect) Stool Astrovirus (PCR) (Not Detect) Stool Cryptosporidium PCR (Not Detect) Stl E.coli Shiga Tox PCR (Not Detect) St Sh/Enteroin Ecoli PCR (Not Detect) Stool E coli O157 PCR Stl Enterotoxigenic E PCR (Not Detect) Stool EPEC (PCR) (Not Detect) Stl E. histolytica PCR (Not Detect) Stool Giardia Lamblia PCR (Not Detect) Stool Sapovirus (PCR) (Not Detect) Stl P. shigelloides PCR (Not Detect) St Y.enterocolitica PCR (Not Detect) Stool Vibrio (PCR) (Not Detect) Stl Vibrio cholerae PCR (Not Detect) Stl Enteroaggr Ecoli PCR (Not Detect) Stl Norovirus GI/GII PCR (Not Detect) Chlamy pneumoniae PCR (Not Detect) Adenovirus (PCR) (Not Detect) B.parapertussis DNA PCR (Not Detect) Campylobacter (PCR) (Not Detect) C. difficile Tox (PCR) (Not Detect) Coronavirus OC43 (PCR) (Not Detect) Coronavirus HKU1 (PCR) (Not Detect) Coronavirus 229E (PCR) (Not Detect) Coronavirus NL63 (PCR) (Not Detect) Human Metapneumovir PCR (Not Detect) Influenza Type A (PCR) (Not Detect) Influenza Type B (PCR) (Not Detect) M. pneumoniae (PCR) (Not Detect) Parainfluenza 1 (PCR) (Not Detect) Parainfluenza 2 (PCR) (Not Detect) Parainfluenza 3 (PCR) (Not Detect) Parainfluenza 4 (PCR) (Not Detect) RSV (PCR) (Not Detect) Entero/Rhino (PCR) (Not Detect) Salmonella (PCR) (Not Detect) 05/08/19 05/08/19 05/08/19 Range/Units 14:03 14:03 14:03 WBC (4.5-11.0) X10^3/uL RBC (4.0-5.2) X10^6/uL Hgb (12.0-16.0) g/dL Hct (36-46) % MCV (80-100) fL MCH (26-34) PG MCHC (30-36) % RDW (11.6-14.8) % Plt Count (150-400) X10^3/uL Neut % (Auto) (50-75) % Lymph % (Auto) (25-40) % [place] % (Auto) (3-14) % Eos % (Auto) (2-4) % Baso % (Auto) (0-2) % Neut # (Auto) (1329-5281) /uL Lymph # (Auto) (8490-5459) /uL [place] # (Auto) (0-900) /uL Eos # (Auto) (0-450) /uL Baso # (Auto) (0-100) /uL Sodium (137-145) mmol/L Potassium (3.4-5.1) mmol/L Chloride (98-107) mmol/L Carbon Dioxide (22-32) mmol/L BUN (7-17) mg/dL Creatinine (0.52-1.04) mg/dL Estimated GFR (>60) mL/min BUN/Creatinine Ratio (6-22) Glucose (80-110) mg/dL Lactate 1.9 (0.7-2.1) mmol/L Calcium (8.4-10.2) mg/dL Magnesium (1.6-2.3) mg/dL Total Bilirubin (0.2-1.3) mg/dL AST (14-36) IU/L ALT (<35) IU/L Alkaline Phosphatase (38-126) U/L Total Creatine Kinase 49 (30-135) U/L CK-MB (CK-2) TNP CK-MB (CK-2) Rel Index TNP Troponin I 0.014 (0.01-0.034) ng/mL NT-Pro-B Natriuret Pep (<125) pg/mL Total Protein (6.3-8.2) g/dL Albumin (3.5-5.0) g/dL Globulin (1.7-4.1) g/dL Albumin/Globulin Ratio (1.0-2.8) Amylase 74 (30-110) U/L Lipase 101 (23-300) U/L Procalcitonin (<0.5) ng/mL Ur Bilirubin Confirm (Negative) Urine RBC (0-5/HPF) Urine WBC (0-5/HPF) Ur Squamous Epith Cells (0-5/HPF) Ur Transition Epith Cell (0-5/HPF) Urine Bacteria (None) Hyaline Casts (None) Granular Casts (None) WBC Casts (None) Urine Mucus (Negative) Ur Culture Indicated? Gastric Fluid pH Gastric Occult Blood Stool Occult Blood (Negative) Stl C. cayetanensis PCR (Not Detect) Stool Rotavirus (PCR) (Not Detect) Stool Adenovirus (PCR) (Not Detect) Stool Astrovirus (PCR) (Not Detect) Stool Cryptosporidium PCR (Not Detect) Stl E.coli Shiga Tox PCR (Not Detect) St Sh/Enteroin Ecoli PCR (Not Detect) Stool E coli O157 PCR Stl Enterotoxigenic E PCR (Not Detect) Stool EPEC (PCR) (Not Detect) Stl E. histolytica PCR (Not Detect) Stool Giardia Lamblia PCR (Not Detect) Stool Sapovirus (PCR) (Not Detect) Stl P. shigelloides PCR (Not Detect) St Y.enterocolitica PCR (Not Detect) Stool Vibrio (PCR) (Not Detect) Stl Vibrio cholerae PCR (Not Detect) Stl Enteroaggr Ecoli PCR (Not Detect) Stl Norovirus GI/GII PCR (Not Detect) Chlamy pneumoniae PCR (Not Detect) Adenovirus (PCR) (Not Detect) B.parapertussis DNA PCR (Not Detect) Campylobacter (PCR) (Not Detect) C. difficile Tox (PCR) (Not Detect) Coronavirus OC43 (PCR) (Not Detect) Coronavirus HKU1 (PCR) (Not Detect) Coronavirus 229E (PCR) (Not Detect) Coronavirus NL63 (PCR) (Not Detect) Human Metapneumovir PCR (Not Detect) Influenza Type A (PCR) (Not Detect) Influenza Type B (PCR) (Not Detect) M. pneumoniae (PCR) (Not Detect) Parainfluenza 1 (PCR) (Not Detect) Parainfluenza 2 (PCR) (Not Detect) Parainfluenza 3 (PCR) (Not Detect) Parainfluenza 4 (PCR) (Not Detect) RSV (PCR) (Not Detect) Entero/Rhino (PCR) (Not Detect) Salmonella (PCR) (Not Detect) 05/08/19 05/08/19 05/08/19 Range/Units 14:28 14:32 16:00 WBC (4.5-11.0) X10^3/uL RBC (4.0-5.2) X10^6/uL Hgb (12.0-16.0) g/dL Hct (36-46) % MCV (80-100) fL MCH (26-34) PG MCHC (30-36) % RDW (11.6-14.8) % Plt Count (150-400) X10^3/uL Neut % (Auto) (50-75) % Lymph % (Auto) (25-40) % [place] % (Auto) (3-14) % Eos % (Auto) (2-4) % Baso % (Auto) (0-2) % Neut # (Auto) (5068-1411) /uL Lymph # (Auto) (7563-5613) /uL [place] # (Auto) (0-900) /uL Eos # (Auto) (0-450) /uL Baso # (Auto) (0-100) /uL Sodium (137-145) mmol/L Potassium (3.4-5.1) mmol/L Chloride (98-107) mmol/L Carbon Dioxide (22-32) mmol/L BUN (7-17) mg/dL Creatinine (0.52-1.04) mg/dL Estimated GFR (>60) mL/min BUN/Creatinine Ratio (6-22) Glucose (80-110) mg/dL Lactate (0.7-2.1) mmol/L Calcium (8.4-10.2) mg/dL Magnesium (1.6-2.3) mg/dL Total Bilirubin (0.2-1.3) mg/dL AST (14-36) IU/L ALT (<35) IU/L Alkaline Phosphatase (38-126) U/L Total Creatine Kinase (30-135) U/L CK-MB (CK-2) CK-MB (CK-2) Rel Index Troponin I (0.01-0.034) ng/mL NT-Pro-B Natriuret Pep (<125) pg/mL Total Protein (6.3-8.2) g/dL Albumin (3.5-5.0) g/dL Globulin (1.7-4.1) g/dL Albumin/Globulin Ratio (1.0-2.8) Amylase (30-110) U/L Lipase (23-300) U/L Procalcitonin (<0.5) ng/mL Ur Bilirubin Confirm Negative (Negative) Urine RBC 0-1/hpf (0-5/HPF) Urine WBC 5-10/hpf H (0-5/HPF) Ur Squamous Epith Cells 0-1 /hpf (0-5/HPF) Ur Transition Epith Cell 0-1/hpf (0-5/HPF) Urine Bacteria Moderate (10-30) H (None) Hyaline Casts 30-100/lpf (None) Granular Casts 10-30/lpf (None) WBC Casts 5-10/lpf H (None) Urine Mucus 2+ H (Negative) Ur Culture Indicated? Specimen cultured Gastric Fluid pH Cancelled Gastric Occult Blood Cancelled Stool Occult Blood (Negative) Stl C. cayetanensis PCR (Not Detect) Stool Rotavirus (PCR) (Not Detect) Stool Adenovirus (PCR) (Not Detect) Stool Astrovirus (PCR) (Not Detect) Stool Cryptosporidium PCR (Not Detect) Stl E.coli Shiga Tox PCR (Not Detect) St Sh/Enteroin Ecoli PCR (Not Detect) Stool E coli O157 PCR Stl Enterotoxigenic E PCR (Not Detect) Stool EPEC (PCR) (Not Detect) Stl E. histolytica PCR (Not Detect) Stool Giardia Lamblia PCR (Not Detect) Stool Sapovirus (PCR) (Not Detect) Stl P. shigelloides PCR (Not Detect) St Y.enterocolitica PCR (Not Detect) Stool Vibrio (PCR) (Not Detect) Stl Vibrio cholerae PCR (Not Detect) Stl Enteroaggr Ecoli PCR (Not Detect) Stl Norovirus GI/GII PCR (Not Detect) Chlamy pneumoniae PCR Not detected (Not Detect) Adenovirus (PCR) Not detected (Not Detect) B.parapertussis DNA PCR Not detected (Not Detect) Campylobacter (PCR) (Not Detect) C. difficile Tox (PCR) (Not Detect) Coronavirus OC43 (PCR) Not detected (Not Detect) Coronavirus HKU1 (PCR) Not detected (Not Detect) Coronavirus 229E (PCR) Not detected (Not Detect) Coronavirus NL63 (PCR) Not detected (Not Detect) Human Metapneumovir PCR Not detected (Not Detect) Influenza Type A (PCR) Not detected (Not Detect) Influenza Type B (PCR) Not detected (Not Detect) M. pneumoniae (PCR) Not detected (Not Detect) Parainfluenza 1 (PCR) Not detected (Not Detect) Parainfluenza 2 (PCR) Not detected (Not Detect) Parainfluenza 3 (PCR) Not detected (Not Detect) Parainfluenza 4 (PCR) Not detected (Not Detect) RSV (PCR) Not detected (Not Detect) Entero/Rhino (PCR) Not detected (Not Detect) Salmonella (PCR) (Not Detect) 05/08/19 05/08/19 05/08/19 Range/Units 16:00 16:00 18:01 WBC (4.5-11.0) X10^3/uL RBC (4.0-5.2) X10^6/uL Hgb (12.0-16.0) g/dL Hct (36-46) % MCV (80-100) fL MCH (26-34) PG MCHC (30-36) % RDW (11.6-14.8) % Plt Count (150-400) X10^3/uL Neut % (Auto) (50-75) % Lymph % (Auto) (25-40) % [place] % (Auto) (3-14) % Eos % (Auto) (2-4) % Baso % (Auto) (0-2) % Neut # (Auto) (4200-3432) /uL Lymph # (Auto) (7409-9118) /uL [place] # (Auto) (0-900) /uL Eos # (Auto) (0-450) /uL Baso # (Auto) (0-100) /uL Sodium (137-145) mmol/L Potassium (3.4-5.1) mmol/L Chloride (98-107) mmol/L Carbon Dioxide (22-32) mmol/L BUN (7-17) mg/dL Creatinine (0.52-1.04) mg/dL Estimated GFR (>60) mL/min BUN/Creatinine Ratio (6-22) Glucose (80-110) mg/dL Lactate (0.7-2.1) mmol/L Calcium (8.4-10.2) mg/dL Magnesium 1.9 (1.6-2.3) mg/dL Total Bilirubin (0.2-1.3) mg/dL AST (14-36) IU/L ALT (<35) IU/L Alkaline Phosphatase (38-126) U/L Total Creatine Kinase (30-135) U/L CK-MB (CK-2) CK-MB (CK-2) Rel Index Troponin I 0.017 (0.01-0.034) ng/mL NT-Pro-B Natriuret Pep (<125) pg/mL Total Protein (6.3-8.2) g/dL Albumin (3.5-5.0) g/dL Globulin (1.7-4.1) g/dL Albumin/Globulin Ratio (1.0-2.8) Amylase (30-110) U/L Lipase (23-300) U/L Procalcitonin (<0.5) ng/mL Ur Bilirubin Confirm (Negative) Urine RBC (0-5/HPF) Urine WBC (0-5/HPF) Ur Squamous Epith Cells (0-5/HPF) Ur Transition Epith Cell (0-5/HPF) Urine Bacteria (None) Hyaline Casts (None) Granular Casts (None) WBC Casts (None) Urine Mucus (Negative) Ur Culture Indicated? Gastric Fluid pH Gastric Occult Blood Stool Occult Blood Negative (Negative) Stl C. cayetanensis PCR Not detected (Not Detect) Stool Rotavirus (PCR) Not detected (Not Detect) Stool Adenovirus (PCR) Not detected (Not Detect) Stool Astrovirus (PCR) Not detected (Not Detect) Stool Cryptosporidium PCR Not detected (Not Detect) Stl E.coli Shiga Tox PCR Not detected (Not Detect) St Sh/Enteroin Ecoli PCR Not detected (Not Detect) Stool E coli O157 PCR Not Reportable Stl Enterotoxigenic E PCR Not detected (Not Detect) Stool EPEC (PCR) Not detected (Not Detect) Stl E. histolytica PCR Not detected (Not Detect) Stool Giardia Lamblia PCR Not detected (Not Detect) Stool Sapovirus (PCR) Not detected (Not Detect) Stl P. shigelloides PCR Not detected (Not Detect) St Y.enterocolitica PCR Not detected (Not Detect) Stool Vibrio (PCR) Not detected (Not Detect) Stl Vibrio cholerae PCR Not detected (Not Detect) Stl Enteroaggr Ecoli PCR Not detected (Not Detect) Stl Norovirus GI/GII PCR Not detected (Not Detect) Chlamy pneumoniae PCR (Not Detect) Adenovirus (PCR) (Not Detect) B.parapertussis DNA PCR (Not Detect) Campylobacter (PCR) Not detected (Not Detect) C. difficile Tox (PCR) Not detected (Not Detect) Coronavirus OC43 (PCR) (Not Detect) Coronavirus HKU1 (PCR) (Not Detect) Coronavirus 229E (PCR) (Not Detect) Coronavirus NL63 (PCR) (Not Detect) Human Metapneumovir PCR (Not Detect) Influenza Type A (PCR) (Not Detect) Influenza Type B (PCR) (Not Detect) M. pneumoniae (PCR) (Not Detect) Parainfluenza 1 (PCR) (Not Detect) Parainfluenza 2 (PCR) (Not Detect) Parainfluenza 3 (PCR) (Not Detect) Parainfluenza 4 (PCR) (Not Detect) RSV (PCR) (Not Detect) Entero/Rhino (PCR) (Not Detect) Salmonella (PCR) Not detected (Not Detect) Urine Dip Bedside Urine Glucose Negative Bedside Urine Bilirubin ++ 2 Bedside Urine Ketone ++ 40 Urine Specific [place] 1.030 Bedside Urine Occult Blood - Negative Bedside Urine pH 6 Bedside Urine Protein ++ 100 Bedside Urine Urobilinogen +/- 1mg Bedside Urine Nitrite - Negative Bedside Urine Leukocytes + 70 Esterase Point of care testing: Urine Dip Bedside Urine Glucose Negative Bedside Urine Bilirubin ++ 2 Bedside Urine Ketone ++ 40 Urine Specific [place] 1.030 Bedside Urine Occult Blood - Negative Bedside Urine pH 6 Bedside Urine Protein ++ 100 Bedside Urine Urobilinogen +/- 1mg Bedside Urine Nitrite - Negative Bedside Urine Leukocytes + 70 Esterase Imaging Data Chest x-ray: Radiologist's Impression: [address] [address] XRay Report Signed Patient: Cheyenne Martinez JMR#: [id number] : 5Acct:[id number] Age/Sex: 64 / FDate of Service: 05/08/19 Loc: ED Accession Number: [id number] Procedure: XR acute abdomen series Ordering Provider: Juan Pablo Sadler- PROCEDURE: XR ACUTE ABDOMEN SERIES INDICATIONS: sob, abd pain TECHNIQUE: One view chest and two views of the abdomen were acquired. COMPARISON: None. FINDINGS: Surgical changes and devices: Median sternotomy wires are seen. Surgical clips are noted in gallbladder fossa. Chest: Lungs are clear. Heart size is normal. No pleural effusions. No pneumoperitoneum. Abdomen: Bowel gas pattern is normal. No suspicious calcifications. Visualized solid organ contours appear normal. Bones: No suspicious bony lesions. IMPRESSION: No evidence of bowel obstruction or gross free air. No acute cardiopulmonary pathology. Dictated by: Jani Chowdhury M.D. on 05/08/2019 at 15:51 Approved by: Jani Chowdhury M.D. on 05/08/2019 at 15:54 ED echo: Radiologist's Impression: [address] [place] [address] Echocardiography Report Signed Patient: Cheyenne Martinez JMR#: [id number] : 5Acct:[id number] Age/Sex: 64 / FDate of Service: 05/08/19 Loc: ED Accession Number: [id number] Procedure: EC echo limited Ordering Provider: Juan Pablo Sadler [employer]- [facility] +---------+ Hospital +---------+ : : [address] [place] [address]. : : : : [place], [place] : : : : [id number] : : : : Phone: [phone]+ Echocardiogram Report + + :Name: CHEYENNE MARTINEZ Study Date: 05/08/2019 Height: 59 in : :[facility] Weight: 157 lb : : Gender: Female BSA: 1.7 m2 : :: 1955 Age: 64 yrs BP: 127/65 mmHg: :Reason For Study: History of Dilated Cardiomyopathy : :Ordering Physician: Elda : :Hospitalist Performed By: Wanda Reynolds : :Referring: JUAN PABLO SADLER : + + Interpretation Summary The study quality was technically limited. The image quality is poor, despite use of echo contrast. The LVEF appears normal. No Doppler data was obtained. No other interpretation can be made with limited data. Procedure: The study quality was technically difficult. The study quality was technically limited. A contrast injection of Definity was performed to improve assessment of LV function. The patient was in normal sinus rhythm during the exam. Left Ventricle: There is mild concentric left ventricular hypertrophy. The left ventricular cavity is small. The left ventricular ejection fraction is grossly normal. Regional wall motion abnormalities cannot be excluded due to limited visualization. Atria: The left atrium is mildly dilated. Pericardium/ Pleura There is no pericardial effusion. There is no pleural effusion. MMode/2D Measurements & Calculations LVIDd: 3.9 cm LA A2 area: 22.0 cm2 LVIDs: 2.9 cm LA A4 area: 15.2 cm2 FS: 26.1 % LA length (vol): 4.9 cm IVSd: 0.99 cm LA vol: 58.4 ml LVPWd: 1.1 cm LA vol index: 35.1 ml/m2 LV palm. diameter/BSA (cm/m^2): 2.4 LV sys. diameter/BSA (cm/m^2): 1.8 Electronically signed by: Pepito Rascon M.D. on Reading Physician:05/08/2019 06:05 PM ECG Data Attestation: I personally reviewed and interpreted this ECG as follows: Interpretation: Sinus rhythm. Ventricular rate 72. No ST elevation noted. Viewed by Dr. Brady WYNNE Narrative Medical decision making narrative: The patient is a 64-year-old female with a complicated medical history including hypertrophic cardiomyopathy, drug-eluting stent, open heart surgery who presents with a chief complaint of general malaise for the past 2-3 weeks. She states she had a sore throat, which progressed to a cough, which progressed to diarrhea and now general malaise. Her EKG has no acute findings. She has a negative troponin, negative repeat troponin. She has a critically low magnesium at 0.9, which was replaced in increased to 1.9. Her BNP is elevated in the 1600s. The patient was given 40 IV Lasix. Given her respiratory symptoms, a respiratory panel was obtained, which came back with no acute findings. Her chest x-ray shows no pneumonia, though her exam has crackles, which is especially concerning given her elevated BNP. The ED echocardiogram was obtained which shows a slightly dilated left atrium and relatively normal left ventricular ejection fraction. Given the patient's complicated cardiac history, I spoke with Dr. Schultz, on-call for [facility]. He recommends that the patient be admitted for diuresis and electrolyte monitoring. However he does not believe that that has to happen up at [facility] and that she can be admitted at this facility. Given the patient's complexity, I spoke with Dr. Abreu several times throughout her stay in the emergency department. Given the patient's upper respiratory symptoms, general malaise, loose stools and the fact that she has a negative respiratory panel, a covid test is pending upon admission. I spoke with Dr. Fan, who kindly agreed to admit the patient. <Nick Abreu MD - Last Filed: 05/09/19 07:55> Lab Data Labs: Lab Results 05/08/19 05/08/19 05/08/19 Range/Units 14:03 14:03 14:03 WBC 10.8 (4.5-11.0) X10^3/uL RBC 5.02 (4.0-5.2) X10^6/uL Hgb 15.3 (12.0-16.0) g/dL Hct 45.6 (36-46) % MCV 90.7 (80-100) fL MCH 30.5 (26-34) PG MCHC 33.6 (30-36) % RDW 14.0 (11.6-14.8) % Plt Count 277 (150-400) X10^3/uL Neut % (Auto) 75.3 H (50-75) % Lymph % (Auto) 14.0 L (25-40) % [place] % (Auto) 9.8 (3-14) % Eos % (Auto) 0.4 L (2-4) % Baso % (Auto) 0.5 (0-2) % Neut # (Auto) 8100 H (8871-3263) /uL Lymph # (Auto) 1500 (2908-9581) /uL [place] # (Auto) 1100 H (0-900) /uL Eos # (Auto) 0 (0-450) /uL Baso # (Auto) 100 (0-100) /uL Sodium 137 (137-145) mmol/L Potassium 3.6 (3.4-5.1) mmol/L Chloride 104 (98-107) mmol/L Carbon Dioxide 21 L (22-32) mmol/L BUN 10 (7-17) mg/dL Creatinine 0.61 (0.52-1.04) mg/dL Estimated GFR > 60.0 (>60) mL/min BUN/Creatinine Ratio 16.4 (6-22) Glucose 125 H (80-110) mg/dL Lactate (0.7-2.1) mmol/L Calcium 9.4 (8.4-10.2) mg/dL Magnesium 0.9 L* (1.6-2.3) mg/dL Total Bilirubin 0.7 (0.2-1.3) mg/dL AST 44 H (14-36) IU/L ALT 37 H (<35) IU/L Alkaline Phosphatase 99 (38-126) U/L Total Creatine Kinase (30-135) U/L CK-MB (CK-2) CK-MB (CK-2) Rel Index Troponin I (0.01-0.034) ng/mL NT-Pro-B Natriuret Pep 1670 H (<125) pg/mL Total Protein 7.8 (6.3-8.2) g/dL Albumin 4.3 (3.5-5.0) g/dL Globulin 3.5 (1.7-4.1) g/dL Albumin/Globulin Ratio 1.2 (1.0-2.8) Amylase (30-110) U/L Lipase (23-300) U/L Procalcitonin < 0.05 (<0.5) ng/mL Ur Bilirubin Confirm (Negative) Urine RBC (0-5/HPF) Urine WBC (0-5/HPF) Ur Squamous Epith Cells (0-5/HPF) Ur Transition Epith Cell (0-5/HPF) Urine Bacteria (None) Hyaline Casts (None) Granular Casts (None) WBC Casts (None) Urine Mucus (Negative) Ur Culture Indicated? Gastric Fluid pH Gastric Occult Blood Stool Occult Blood (Negative) Stl C. cayetanensis PCR (Not Detect) Stool Rotavirus (PCR) (Not Detect) Stool Adenovirus (PCR) (Not Detect) Stool Astrovirus (PCR) (Not Detect) Stool Cryptosporidium PCR (Not Detect) Stl E.coli Shiga Tox PCR (Not Detect) St Sh/Enteroin Ecoli PCR (Not Detect) Stool E coli O157 PCR Stl Enterotoxigenic E PCR (Not Detect) Stool EPEC (PCR) (Not Detect) Stl E. histolytica PCR (Not Detect) Stool Giardia Lamblia PCR (Not Detect) Stool Sapovirus (PCR) (Not Detect) Stl P. shigelloides PCR (Not Detect) St Y.enterocolitica PCR (Not Detect) Stool Vibrio (PCR) (Not Detect) Stl Vibrio cholerae PCR (Not Detect) Stl Enteroaggr Ecoli PCR (Not Detect) Stl Norovirus GI/GII PCR (Not Detect) Chlamy pneumoniae PCR (Not Detect) Adenovirus (PCR) (Not Detect) B.parapertussis DNA PCR (Not Detect) Campylobacter (PCR) (Not Detect) C. difficile Tox (PCR) (Not Detect) Coronavirus OC43 (PCR) (Not Detect) Coronavirus HKU1 (PCR) (Not Detect) Coronavirus 229E (PCR) (Not Detect) Coronavirus NL63 (PCR) (Not Detect) Human Metapneumovir PCR (Not Detect) Influenza Type A (PCR) (Not Detect) Influenza Type B (PCR) (Not Detect) M. pneumoniae (PCR) (Not Detect) Parainfluenza 1 (PCR) (Not Detect) Parainfluenza 2 (PCR) (Not Detect) Parainfluenza 3 (PCR) (Not Detect) Parainfluenza 4 (PCR) (Not Detect) RSV (PCR) (Not Detect) Entero/Rhino (PCR) (Not Detect) Salmonella (PCR) (Not Detect) 05/08/19 05/08/19 05/08/19 Range/Units 14:03 14:03 14:03 WBC (4.5-11.0) X10^3/uL RBC (4.0-5.2) X10^6/uL Hgb (12.0-16.0) g/dL Hct (36-46) % MCV (80-100) fL MCH (26-34) PG MCHC (30-36) % RDW (11.6-14.8) % Plt Count (150-400) X10^3/uL Neut % (Auto) (50-75) % Lymph % (Auto) (25-40) % [place] % (Auto) (3-14) % Eos % (Auto) (2-4) % Baso % (Auto) (0-2) % Neut # (Auto) (2769-7184) /uL Lymph # (Auto) (9528-6138) /uL [place] # (Auto) (0-900) /uL Eos # (Auto) (0-450) /uL Baso # (Auto) (0-100) /uL Sodium (137-145) mmol/L Potassium (3.4-5.1) mmol/L Chloride (98-107) mmol/L Carbon Dioxide (22-32) mmol/L BUN (7-17) mg/dL Creatinine (0.52-1.04) mg/dL Estimated GFR (>60) mL/min BUN/Creatinine Ratio (6-22) Glucose (80-110) mg/dL Lactate 1.9 (0.7-2.1) mmol/L Calcium (8.4-10.2) mg/dL Magnesium (1.6-2.3) mg/dL Total Bilirubin (0.2-1.3) mg/dL AST (14-36) IU/L ALT (<35) IU/L Alkaline Phosphatase (38-126) U/L Total Creatine Kinase 49 (30-135) U/L CK-MB (CK-2) TNP CK-MB (CK-2) Rel Index TNP Troponin I 0.014 (0.01-0.034) ng/mL NT-Pro-B Natriuret Pep (<125) pg/mL Total Protein (6.3-8.2) g/dL Albumin (3.5-5.0) g/dL Globulin (1.7-4.1) g/dL Albumin/Globulin Ratio (1.0-2.8) Amylase 74 (30-110) U/L Lipase 101 (23-300) U/L Procalcitonin (<0.5) ng/mL Ur Bilirubin Confirm (Negative) Urine RBC (0-5/HPF) Urine WBC (0-5/HPF) Ur Squamous Epith Cells (0-5/HPF) Ur Transition Epith Cell (0-5/HPF) Urine Bacteria (None) Hyaline Casts (None) Granular Casts (None) WBC Casts (None) Urine Mucus (Negative) Ur Culture Indicated? Gastric Fluid pH Gastric Occult Blood Stool Occult Blood (Negative) Stl C. cayetanensis PCR (Not Detect) Stool Rotavirus (PCR) (Not Detect) Stool Adenovirus (PCR) (Not Detect) Stool Astrovirus (PCR) (Not Detect) Stool Cryptosporidium PCR (Not Detect) Stl E.coli Shiga Tox PCR (Not Detect) St Sh/Enteroin Ecoli PCR (Not Detect) Stool E coli O157 PCR Stl Enterotoxigenic E PCR (Not Detect) Stool EPEC (PCR) (Not Detect) Stl E. histolytica PCR (Not Detect) Stool Giardia Lamblia PCR (Not Detect) Stool Sapovirus (PCR) (Not Detect) Stl P. shigelloides PCR (Not Detect) St Y.enterocolitica PCR (Not Detect) Stool Vibrio (PCR) (Not Detect) Stl Vibrio cholerae PCR (Not Detect) Stl Enteroaggr Ecoli PCR (Not Detect) Stl Norovirus GI/GII PCR (Not Detect) Chlamy pneumoniae PCR (Not Detect) Adenovirus (PCR) (Not Detect) B.parapertussis DNA PCR (Not Detect) Campylobacter (PCR) (Not Detect) C. difficile Tox (PCR) (Not Detect) Coronavirus OC43 (PCR) (Not Detect) Coronavirus HKU1 (PCR) (Not Detect) Coronavirus 229E (PCR) (Not Detect) Coronavirus NL63 (PCR) (Not Detect) Human Metapneumovir PCR (Not Detect) Influenza Type A (PCR) (Not Detect) Influenza Type B (PCR) (Not Detect) M. pneumoniae (PCR) (Not Detect) Parainfluenza 1 (PCR) (Not Detect) Parainfluenza 2 (PCR) (Not Detect) Parainfluenza 3 (PCR) (Not Detect) Parainfluenza 4 (PCR) (Not Detect) RSV (PCR) (Not Detect) Entero/Rhino (PCR) (Not Detect) Salmonella (PCR) (Not Detect) 05/08/19 05/08/19 05/08/19 Range/Units 14:28 14:32 16:00 WBC (4.5-11.0) X10^3/uL RBC (4.0-5.2) X10^6/uL Hgb (12.0-16.0) g/dL Hct (36-46) % MCV (80-100) fL MCH (26-34) PG MCHC (30-36) % RDW (11.6-14.8) % Plt Count (150-400) X10^3/uL Neut % (Auto) (50-75) % Lymph % (Auto) (25-40) % [place] % (Auto) (3-14) % Eos % (Auto) (2-4) % Baso % (Auto) (0-2) % Neut # (Auto) (1979-1298) /uL Lymph # (Auto) (7168-7475) /uL [place] # (Auto) (0-900) /uL Eos # (Auto) (0-450) /uL Baso # (Auto) (0-100) /uL Sodium (137-145) mmol/L Potassium (3.4-5.1) mmol/L Chloride (98-107) mmol/L Carbon Dioxide (22-32) mmol/L BUN (7-17) mg/dL Creatinine (0.52-1.04) mg/dL Estimated GFR (>60) mL/min BUN/Creatinine Ratio (6-22) Glucose (80-110) mg/dL Lactate (0.7-2.1) mmol/L Calcium (8.4-10.2) mg/dL Magnesium (1.6-2.3) mg/dL Total Bilirubin (0.2-1.3) mg/dL AST (14-36) IU/L ALT (<35) IU/L Alkaline Phosphatase (38-126) U/L Total Creatine Kinase (30-135) U/L CK-MB (CK-2) CK-MB (CK-2) Rel Index Troponin I (0.01-0.034) ng/mL NT-Pro-B Natriuret Pep (<125) pg/mL Total Protein (6.3-8.2) g/dL Albumin (3.5-5.0) g/dL Globulin (1.7-4.1) g/dL Albumin/Globulin Ratio (1.0-2.8) Amylase (30-110) U/L Lipase (23-300) U/L Procalcitonin (<0.5) ng/mL Ur Bilirubin Confirm Negative (Negative) Urine RBC 0-1/hpf (0-5/HPF) Urine WBC 5-10/hpf H (0-5/HPF) Ur Squamous Epith Cells 0-1 /hpf (0-5/HPF) Ur Transition Epith Cell 0-1/hpf (0-5/HPF) Urine Bacteria Moderate (10-30) H (None) Hyaline Casts 30-100/lpf (None) Granular Casts 10-30/lpf (None) WBC Casts 5-10/lpf H (None) Urine Mucus 2+ H (Negative) Ur Culture Indicated? Specimen cultured Gastric Fluid pH Cancelled Gastric Occult Blood Cancelled Stool Occult Blood (Negative) Stl C. cayetanensis PCR (Not Detect) Stool Rotavirus (PCR) (Not Detect) Stool Adenovirus (PCR) (Not Detect) Stool Astrovirus (PCR) (Not Detect) Stool Cryptosporidium PCR (Not Detect) Stl E.coli Shiga Tox PCR (Not Detect) St Sh/Enteroin Ecoli PCR (Not Detect) Stool E coli O157 PCR Stl Enterotoxigenic E PCR (Not Detect) Stool EPEC (PCR) (Not Detect) Stl E. histolytica PCR (Not Detect) Stool Giardia Lamblia PCR (Not Detect) Stool Sapovirus (PCR) (Not Detect) Stl P. shigelloides PCR (Not Detect) St Y.enterocolitica PCR (Not Detect) Stool Vibrio (PCR) (Not Detect) Stl Vibrio cholerae PCR (Not Detect) Stl Enteroaggr Ecoli PCR (Not Detect) Stl Norovirus GI/GII PCR (Not Detect) Chlamy pneumoniae PCR Not detected (Not Detect) Adenovirus (PCR) Not detected (Not Detect) B.parapertussis DNA PCR Not detected (Not Detect) Campylobacter (PCR) (Not Detect) C. difficile Tox (PCR) (Not Detect) Coronavirus OC43 (PCR) Not detected (Not Detect) Coronavirus HKU1 (PCR) Not detected (Not Detect) Coronavirus 229E (PCR) Not detected (Not Detect) Coronavirus NL63 (PCR) Not detected (Not Detect) Human Metapneumovir PCR Not detected (Not Detect) Influenza Type A (PCR) Not detected (Not Detect) Influenza Type B (PCR) Not detected (Not Detect) M. pneumoniae (PCR) Not detected (Not Detect) Parainfluenza 1 (PCR) Not detected (Not Detect) Parainfluenza 2 (PCR) Not detected (Not Detect) Parainfluenza 3 (PCR) Not detected (Not Detect) Parainfluenza 4 (PCR) Not detected (Not Detect) RSV (PCR) Not detected (Not Detect) Entero/Rhino (PCR) Not detected (Not Detect) Salmonella (PCR) (Not Detect) 05/08/19 05/08/19 05/08/19 Range/Units 16:00 16:00 18:01 WBC (4.5-11.0) X10^3/uL RBC (4.0-5.2) X10^6/uL Hgb (12.0-16.0) g/dL Hct (36-46) % MCV (80-100) fL MCH (26-34) PG MCHC (30-36) % RDW (11.6-14.8) % Plt Count (150-400) X10^3/uL Neut % (Auto) (50-75) % Lymph % (Auto) (25-40) % [place] % (Auto) (3-14) % Eos % (Auto) (2-4) % Baso % (Auto) (0-2) % Neut # (Auto) (5552-8545) /uL Lymph # (Auto) (8429-5836) /uL [place] # (Auto) (0-900) /uL Eos # (Auto) (0-450) /uL Baso # (Auto) (0-100) /uL Sodium (137-145) mmol/L Potassium (3.4-5.1) mmol/L Chloride (98-107) mmol/L Carbon Dioxide (22-32) mmol/L BUN (7-17) mg/dL Creatinine (0.52-1.04) mg/dL Estimated GFR (>60) mL/min BUN/Creatinine Ratio (6-22) Glucose (80-110) mg/dL Lactate (0.7-2.1) mmol/L Calcium (8.4-10.2) mg/dL Magnesium 1.9 (1.6-2.3) mg/dL Total Bilirubin (0.2-1.3) mg/dL AST (14-36) IU/L ALT (<35) IU/L Alkaline Phosphatase (38-126) U/L Total Creatine Kinase (30-135) U/L CK-MB (CK-2) CK-MB (CK-2) Rel Index Troponin I 0.017 (0.01-0.034) ng/mL NT-Pro-B Natriuret Pep (<125) pg/mL Total Protein (6.3-8.2) g/dL Albumin (3.5-5.0) g/dL Globulin (1.7-4.1) g/dL Albumin/Globulin Ratio (1.0-2.8) Amylase (30-110) U/L Lipase (23-300) U/L Procalcitonin (<0.5) ng/mL Ur Bilirubin Confirm (Negative) Urine RBC (0-5/HPF) Urine WBC (0-5/HPF) Ur Squamous Epith Cells (0-5/HPF) Ur Transition Epith Cell (0-5/HPF) Urine Bacteria (None) Hyaline Casts (None) Granular Casts (None) WBC Casts (None) Urine Mucus (Negative) Ur Culture Indicated? Gastric Fluid pH Gastric Occult Blood Stool Occult Blood Negative (Negative) Stl C. cayetanensis PCR Not detected (Not Detect) Stool Rotavirus (PCR) Not detected (Not Detect) Stool Adenovirus (PCR) Not detected (Not Detect) Stool Astrovirus (PCR) Not detected (Not Detect) Stool Cryptosporidium PCR Not detected (Not Detect) Stl E.coli Shiga Tox PCR Not detected (Not Detect) St Sh/Enteroin Ecoli PCR Not detected (Not Detect) Stool E coli O157 PCR Not Reportable Stl Enterotoxigenic E PCR Not detected (Not Detect) Stool EPEC (PCR) Not detected (Not Detect) Stl E. histolytica PCR Not detected (Not Detect) Stool Giardia Lamblia PCR Not detected (Not Detect) Stool Sapovirus (PCR) Not detected (Not Detect) Stl P. shigelloides PCR Not detected (Not Detect) St Y.enterocolitica PCR Not detected (Not Detect) Stool Vibrio (PCR) Not detected (Not Detect) Stl Vibrio cholerae PCR Not detected (Not Detect) Stl Enteroaggr Ecoli PCR Not detected (Not Detect) Stl Norovirus GI/GII PCR Not detected (Not Detect) Chlamy pneumoniae PCR (Not Detect) Adenovirus (PCR) (Not Detect) B.parapertussis DNA PCR (Not Detect) Campylobacter (PCR) Not detected (Not Detect) C. difficile Tox (PCR) Not detected (Not Detect) Coronavirus OC43 (PCR) (Not Detect) Coronavirus HKU1 (PCR) (Not Detect) Coronavirus 229E (PCR) (Not Detect) Coronavirus NL63 (PCR) (Not Detect) Human Metapneumovir PCR (Not Detect) Influenza Type A (PCR) (Not Detect) Influenza Type B (PCR) (Not Detect) M. pneumoniae (PCR) (Not Detect) Parainfluenza 1 (PCR) (Not Detect) Parainfluenza 2 (PCR) (Not Detect) Parainfluenza 3 (PCR) (Not Detect) Parainfluenza 4 (PCR) (Not Detect) RSV (PCR) (Not Detect) Entero/Rhino (PCR) (Not Detect) Salmonella (PCR) Not detected (Not Detect) Urine Dip Bedside Urine Glucose Negative Bedside Urine Bilirubin ++ 2 Bedside Urine Ketone ++ 40 Urine Specific [place] 1.030 Bedside Urine Occult Blood - Negative Bedside Urine pH 6 Bedside Urine Protein ++ 100 Bedside Urine Urobilinogen +/- 1mg Bedside Urine Nitrite - Negative Bedside Urine Leukocytes + 70 Esterase Point of care testing: Urine Dip Bedside Urine Glucose Negative Bedside Urine Bilirubin ++ 2 Bedside Urine Ketone ++ 40 Urine Specific [place] 1.030 Bedside Urine Occult Blood - Negative Bedside Urine pH 6 Bedside Urine Protein ++ 100 Bedside Urine Urobilinogen +/- 1mg Bedside Urine Nitrite - Negative Bedside Urine Leukocytes + 70 Esterase Discharge Plan Departure Patient Disposition: Admitted As Inpatient Clinical Impression: Elevated brain natriuretic peptide (BNP) level, Malaise, Hypomagnesemia Heart failure Qualifiers: Heart failure type: unspecified Heart failure chronicity: acute Qualified Code(s): I50.9 - Heart failure, unspecified Discharge Date/Time: 05/08/19 21:05 Admit Date/Time: 05/08/19 19:57 Admit Provider: Yady Fan
[2019-05-08 14:59] LABS: Creatine Kinase 49 U/L (30-135)
[2019-05-08] MEDS: SODIUM CHLORIDE 0.9% 1,000 ML 150 ML IV (15:00)
[2019-05-08] MEDS: MAGNESIUM SULFATE 2 GM/50 ML PIGGYBACK IV (15:03)
[2019-05-08 15:12] LABS: HEMOLYSIS 49 (0-50); NT-proBNP (BNP-Adult 18+) 1670 pg/mL (<125)
[2019-05-08 15:13] LABS: Troponin I 0.014 ng/mL (0.01-0.034)
[2019-05-08 15:18] LABS: Procalcitonin < 0.05 ng/mL (<0.5)
--- NOTE | 2019-05-08 15:31 | DI.ECHO.S_ITS ---
[facility]---------+ [facility] +---------+ : : [address] : [address] : : : : [phone] : : : : Phone: [phone]---------+ Echocardiogram Report + + :Name: JEFFERY MARTINEZ Study Date: 05/08/2019 Height: 59 in : :[facility] Weight: 157 lb : : Gender: Female BSA: 1.7 m2 : :: 1955 Age: 64 yrs BP: 127/65 mmHg: :Reason For Study: History of Dilated Cardiomyopathy : :Ordering Physician: Elda : :Hospitalist Performed By: Wanda Reynolds : :Referring: JUAN PABLO SADLER : + + Interpretation Summary The study quality was technically limited. The image quality is poor, despite use of echo contrast. The LVEF appears normal. No Doppler data was obtained. No other interpretation can be made with limited data. Procedure: The study quality was technically difficult. The study quality was technically limited. A contrast injection of Definity was performed to improve assessment of LV function. The patient was in normal sinus rhythm during the exam. Left Ventricle: There is mild concentric left ventricular hypertrophy. The left ventricular cavity is small. The left ventricular ejection fraction is grossly normal. Regional wall motion abnormalities cannot be excluded due to limited visualization. Atria: The left atrium is mildly dilated. Pericardium/ Pleura There is no pericardial effusion. There is no pleural effusion. MMode/2D Measurements & Calculations LVIDd: 3.9 cm LA A2 area: 22.0 cm2 LVIDs: 2.9 cm LA A4 area: 15.2 cm2 FS: 26.1 % LA length (vol): 4.9 cm IVSd: 0.99 cm LA vol: 58.4 ml LVPWd: 1.1 cm LA vol index: 35.1 ml/m2 LV palm. diameter/BSA (cm/m^2): 2.4 LV sys. diameter/BSA (cm/m^2): 1.8 Electronically signed by: Pepito Rascon M.D. on Reading Physician:05/08/2019 06:05 PM
[2019-05-08 15:38] LABS: Bacteria Urine Moderate (10-30); Granular Casts Urine 10-30/LPF; Hyaline Casts Urine 30-100/LPF; Mucus Urine 2+ (Negative); RBC Urine 0-1/HPF (0-5/HPF); Squamous Epithelial Cell Urine 0-1 /HPF (0-5/HPF); Transitional Epi Cells Urine 0-1/HPF (0-5/HPF); WBC Urine 5-10/HPF (0-5/HPF); White Blood Cell Casts Urine 5-10/LPF
[2019-05-08 15:39] LABS: Culture Indicated Urine Specimen Cultured
[2019-05-08 15:40] LABS: Ictotest Urine Negative (Negative)
[2019-05-08 16:51] LABS: Occult Blood 1 Negative (Negative)
[2019-05-08] MEDS: FUROSEMIDE 40 MG/4 ML VIAL IV (16:51)
[2019-05-08 17:39] LABS: Adenovirus Not Detected (Not Detect); Bordetella pertussis Not Detected (Not Detect); Chlamydophila pneumoniae Not Detected (Not Detect); Coronavirus 229E Not Detected (Not Detect); Coronavirus HKU1 Not Detected (Not Detect); Coronavirus NL 63 Not Detected (Not Detect); Coronavirus OC43 Not Detected (Not Detect); Human Metapneumovirus Not Detected (Not Detect); Human Rhinovirus/Enterovirus Not Detected (Not Detect); Influenza A Not Detected (Not Detect); Influenza B Not Detected (Not Detect); Mycoplasma pneumoniae Not Detected (Not Detect); Parainfluenza Virus 1 Not Detected (Not Detect); Parainfluenza Virus 2 Not Detected (Not Detect); Parainfluenza Virus 3 Not Detected (Not Detect); Parainfluenza Virus 4 Not Detected (Not Detect); Respiratory Syncytial Virus Not Detected (Not Detect)
[2019-05-08 18:24] LABS: Magnesium 1.9 mg/dL (1.6-2.3)
[2019-05-08 18:31] LABS: Adenovirus F 40/41 Not Detected (Not Detect); Astrovirus Not Detected (Not Detect); Campylobacter Not Detected (Not Detect); Clostridium difficile toxin AB Not Detected (Not Detect); Cryptosporidium Not Detected (Not Detect); Cyclospora cayetanensis Not Detected (Not Detect); Entamoeba histolytica Not Detected (Not Detect); Enteroaggregative E.coli Not Detected (Not Detect); Enteropathogenic E.coli Not Detected (Not Detect); Enterotoxigenic E.coli It/st Not Detected (Not Detect); Giardia lamblia Not Detected (Not Detect); Norovirus GI/GII Not Detected (Not Detect); Plesiomonsa shigelloides Not Detected (Not Detect); Rotavirus A Not Detected (Not Detect); Salmonella Not Detected (Not Detect); Sapovirus Not Detected (Not Detect); Shiga-like toxin-prod E.coli Not Detected (Not Detect); Shigella/Enteroinvasive E.coli Not Detected (Not Detect); Vibrio Not Detected (Not Detect); Vibrio cholerae Not Detected (Not Detect); Yersinia enterocolitica Not Detected (Not Detect)
[2019-05-08 18:35] LABS: Troponin I 0.017 ng/mL (0.01-0.034)
--- NOTE | 2019-05-08 21:53 | DI.CT.S_ITS ---
PROCEDURE: CT CHEST ABD PEL W CON INDICATIONS: abdominal pain diarrhea TECHNIQUE: After the administration of oral and intravenous contrast, 5 mm thick sections acquired from the lung apices to the symphysis. 5 mm coronal and sagittal reformats were performed, with additional 7 mm coronal MIP reformats through the lungs. For radiation dose reduction, the following was used: automated exposure control, adjustment of mA and/or kV according to patient size. COMPARISON: None. FINDINGS: Image quality: Excellent. CHEST: Lungs and pleura: No acute airspace opacities. No pleural effusions or pneumothorax. Central and peripheral airways appear patent and normal in caliber. Mediastinum: Heart size is normal. No pericardial effusion. Prominent coronary calcifications, prior sternotomy. No mediastinal or hilar adenopathy by size criteria. Thoracic aorta and central pulmonary arteries are normal in size. Esophagus is normal in caliber. No hiatal hernia. Chest wall: No axillary or supraclavicular adenopathy by size criteria. Thyroid gland appears normal where well seen. ABDOMEN: Solid organs: Liver is normal in size and enhancement. There is focal fatty infiltration at the margin of the fissure for the falciform ligament, a frequent finding. Gallbladder has been previously resected. Biliary system is non dilated. Pancreas enhances normally. Spleen is normal in size and enhancement. No adrenal nodules. Kidneys demonstrate normal size and enhancement, without hydronephrosis. Peritoneum and bowel: Bowel loops demonstrate normal wall thickness and caliber. No free fluid or air. Nodes and vessels: No retroperitoneal or mesenteric adenopathy by size criteria. Aorta and inferior vena cava are normal in size. Miscellaneous: No ventral hernias. PELVIS: Genitourinary: Bladder wall thickness is normal. Miscellaneous: No inguinal hernias or adenopathy. Bones: No suspicious bony lesions. No vertebral body compression fractures. IMPRESSION: Prior cholecystectomy. No evidence of colitis or enteritis. A normal or abnormal appendix could not be located, but no secondary CT evidence of acute appendicitis is found. Overall, therefore, the source of current symptoms is not found. Dictated by: Alfonso Harvey M.D. on 05/09/2019 at 9:06 Approved by: Alfonso Harvey M.D. on 05/09/2019 at 9:09
--- NOTE | 2019-05-08 21:54 | P.HP_ITS ---
History of Present Illness History of Present Illness Date Patient Seen: 05/08/19 Chief complaint: Sick For 2 Weeks Narrative: Patient is a 64-year-old female with a complex medical history including hypertrophic cardiomyopathy status post ventricular septal myomectomy, coronary artery disease, type 2 diabetes, hyperlipidemia, hypertension, history of myocardial infarction, who was in her usual state of health until about 2 weeks ago. Patient reports that her has been sick with a viral illness. Patient over the past 2 weeks has had fever to 101, cough, headache, runny nose, and diarrhea. She has had significant fatigue. She describes having up to 8 loose stools per day at least for the past week. She has had no hematemesis melena or bright red blood per rectum. She has not had no hemoptysis. She has not traveled recently. She has only been exposed to her who is ill. Her has not traveled recently. He is employed by the . Because the patient continued to feel fatigued was not making any improvement she presented to the hospital for evaluation. She denies any orthopnea or PND. She has had no lower extremity edema. Patient underwent a chest x-ray in the emergency room which was negative for infiltrate, she did receive 1 dose of Lasix for presumed heart failure. Patient had a proBNP which was elevated at 1600. She is admitted to the hospital for further evaluation Patient History Medical History CAD in [place] artery (Acute) Cardiomyopathy, hypertrophic (Acute) Diabetes (Acute) Edema (Acute) HLD (hyperlipidemia) (Acute) HTN (hypertension) (Acute) Mild mitral insufficiency (Acute) Myocardial infarction (Acute) Polycythemia (Acute) Presence of drug-eluting stent in right coronary artery (Acute ~03/2010) Raynauds phenomenon (Acute) Right shoulder pain (Acute) Surgical History (Updated 05/08/19 @ 16:39 by Sara Trimble RN) H/O ventricular septal myectomy (Acute) Family & Social History Family History (Updated 05/08/19 @ 22:02 by Yady Fan MD) Daughter Hypertrophic cardiomyopathy Father Myocardial infarction involving right coronary artery Mother Cancer Social History: household members spouse Prior Living Arrangements House Safety & Behavioral: Feels Safe in Current Yes Environment Been Physically Hurt or No Threatened By a Person Suicidal Ideation Description None Suicide Plan Description No Plan Tobacco & Substance use: Smoking Status Never smoker alcohol intake frequency holiday/special occasion Substance Use Type does not use Meds Home Medications and Allergies Home Medications Medication Instructions Recorded Confirmed Type atorvastatin 40 mg PO QPM 12/03/17 05/08/19 History cyclobenzaprine 10 mg PO TID PRN #20 tab 12/03/17 05/08/19 Rx fluoxetine 20 mg PO BID 12/03/17 05/08/19 History glipizide 2.5 mg PO DAILY 12/03/17 05/08/19 History lisinopril 20 mg PO DAILY 12/03/17 05/08/19 History metformin 1,000 mg PO QAM 12/03/17 05/08/19 History metoprolol tartrate 25 mg PO BID 12/03/17 05/08/19 History omeprazole 20 mg PO BID 12/03/17 05/08/19 History nortriptyline 10 mg PO BEDTIME 12/04/17 05/08/19 History exenatide microspheres 2 mg SUBCUT QWEEK 05/08/19 05/08/19 History Allergies Allergy/AdvReac Type Severity Reaction Status Date / Time Sulfa (Sulfonamide Allergy Severe Rash Verified 05/08/19 13:31 Antibiotics) Review of Systems Review of Systems Narrative: Patient complains of right ankle pain from an Achilles tendon rupture which happened about a year ago. Other review of systems is negative ROS: Yes All systems reviewed with the patient and are negative except as otherwise documented Exam Vital Signs (past 8 hours): - 05/08/19 14:46 05/08/19 15:12 05/08/19 16:00 Temperature 98.3 F Pulse Rate 77 74 Respiratory Rate 28 H 20 Blood Pressure [Left Arm] 127/65 102/58 L Pulse Oximetry 94 95 05/08/19 17:00 05/08/19 18:00 05/08/19 18:30 Temperature Pulse Rate 69 74 67 Respiratory Rate 18 26 H 17 Blood Pressure [Left Arm] 96/50 L 101/54 L 89/51 L Pulse Oximetry 95 93 91 05/08/19 19:00 05/08/19 20:33 Temperature Pulse Rate 71 70 Respiratory Rate 24 13 Blood Pressure [Left Arm] 107/53 L 97/51 L Pulse Oximetry 92 92 Oxygen Delivery Method Nasal Cannula Oxygen Flow Rate 2 Narrative Exam Narrative: Pleasant female resting comfortably in no obvious distress HEENT: Normocephalic atraumatic, extraocular muscles are intact, oropharynx is clear, neck is supple, there is elevated JVD but no adenopathy Lungs: Decreased breath sounds but clear to auscultation, no rhonchi crackles or wheezes Cardiac exam regular rate and rhythm normal S1-S2 Abdomen: Soft, midline surgical incision well-healed, tender in the midepigastric area, no palpable masses, no rebound tenderness, no board-like rigidity, no appreciable hepatosplenomegaly Extremities: No edema, Skin exam: Right lower extremity with some discoloration of the right mixing machine tender to palpation Neuro exam: Cranial nerves 2-12 are intact, says strength is symmetric and equal, she is tender and somewhat weak in the right lower extremity sensations grossly intact reflexes are equal gait is not assessed Psychiatric exam patient is awake alert and oriented, no delusions or hallucinations, no tics Objective Labs Result Diagrams: 05/08/19 14:03 05/08/19 14:03 Labs: Laboratory Results - last 24 hr 05/08/19 05/08/19 05/08/19 14:03 14:03 14:03 WBC 10.8 RBC 5.02 Hgb 15.3 Hct 45.6 MCV 90.7 MCH 30.5 MCHC 33.6 RDW 14.0 Plt Count 277 Neut % (Auto) 75.3 H Lymph % (Auto) 14.0 L Kaufman % (Auto) 9.8 Eos % (Auto) 0.4 L Baso % (Auto) 0.5 Neut # (Auto) 8100 H Lymph # (Auto) 1500 Kaufman # (Auto) 1100 H Eos # (Auto) 0 Baso # (Auto) 100 Sodium 137 Potassium 3.6 Chloride 104 Carbon Dioxide 21 L BUN 10 Creatinine 0.61 Estimated GFR > 60.0 BUN/Creatinine Ratio 16.4 Glucose 125 H Lactate Calcium 9.4 Magnesium 0.9 L* Total Bilirubin 0.7 AST 44 H ALT 37 H Alkaline Phosphatase 99 Total Creatine Kinase CK-MB (CK-2) CK-MB (CK-2) Rel Index Troponin I NT-Pro-B Natriuret Pep 1670 H Total Protein 7.8 Albumin 4.3 Globulin 3.5 Albumin/Globulin Ratio 1.2 Amylase Lipase Procalcitonin < 0.05 Ur Bilirubin Confirm Urine RBC Urine WBC Ur Squamous Epith Cells Ur Transition Epith Cell Urine Bacteria Hyaline Casts Granular Casts WBC Casts Urine Mucus Ur Culture Indicated? Gastric Fluid pH Gastric Occult Blood Stool Occult Blood Stl C. cayetanensis PCR Stool Rotavirus (PCR) Stool Adenovirus (PCR) Stool Astrovirus (PCR) Stool Cryptosporidium PCR Stl E.coli Shiga Tox PCR St Sh/Enteroin Ecoli PCR Stool E coli O157 PCR Stl Enterotoxigenic E PCR Stool EPEC (PCR) Stl E. histolytica PCR Stool Giardia Lamblia PCR Stool Sapovirus (PCR) Stl P. shigelloides PCR St Y.enterocolitica PCR Stool Vibrio (PCR) Stl Vibrio cholerae PCR Stl Enteroaggr Ecoli PCR Stl Norovirus GI/GII PCR Chlamy pneumoniae PCR Adenovirus (PCR) B.parapertussis DNA PCR Campylobacter (PCR) C. difficile Tox (PCR) Coronavirus OC43 (PCR) Coronavirus HKU1 (PCR) Coronavirus 229E (PCR) Coronavirus NL63 (PCR) Human Metapneumovir PCR Influenza Type A (PCR) Influenza Type B (PCR) M. pneumoniae (PCR) Parainfluenza 1 (PCR) Parainfluenza 2 (PCR) Parainfluenza 3 (PCR) Parainfluenza 4 (PCR) RSV (PCR) Entero/Rhino (PCR) Salmonella (PCR) 05/08/19 05/08/19 05/08/19 14:03 14:03 14:03 WBC RBC Hgb Hct MCV MCH MCHC RDW Plt Count Neut % (Auto) Lymph % (Auto) Kaufman % (Auto) Eos % (Auto) Baso % (Auto) Neut # (Auto) Lymph # (Auto) Kaufman # (Auto) Eos # (Auto) Baso # (Auto) Sodium Potassium Chloride Carbon Dioxide BUN Creatinine Estimated GFR BUN/Creatinine Ratio Glucose Lactate 1.9 Calcium Magnesium Total Bilirubin AST ALT Alkaline Phosphatase Total Creatine Kinase 49 CK-MB (CK-2) TNP CK-MB (CK-2) Rel Index TNP Troponin I 0.014 NT-Pro-B Natriuret Pep Total Protein Albumin Globulin Albumin/Globulin Ratio Amylase 74 Lipase 101 Procalcitonin Ur Bilirubin Confirm Urine RBC Urine WBC Ur Squamous Epith Cells Ur Transition Epith Cell Urine Bacteria Hyaline Casts Granular Casts WBC Casts Urine Mucus Ur Culture Indicated? Gastric Fluid pH Gastric Occult Blood Stool Occult Blood Stl C. cayetanensis PCR Stool Rotavirus (PCR) Stool Adenovirus (PCR) Stool Astrovirus (PCR) Stool Cryptosporidium PCR Stl E.coli Shiga Tox PCR St Sh/Enteroin Ecoli PCR Stool E coli O157 PCR Stl Enterotoxigenic E PCR Stool EPEC (PCR) Stl E. histolytica PCR Stool Giardia Lamblia PCR Stool Sapovirus (PCR) Stl P. shigelloides PCR St Y.enterocolitica PCR Stool Vibrio (PCR) Stl Vibrio cholerae PCR Stl Enteroaggr Ecoli PCR Stl Norovirus GI/GII PCR Chlamy pneumoniae PCR Adenovirus (PCR) B.parapertussis DNA PCR Campylobacter (PCR) C. difficile Tox (PCR) Coronavirus OC43 (PCR) Coronavirus HKU1 (PCR) Coronavirus 229E (PCR) Coronavirus NL63 (PCR) Human Metapneumovir PCR Influenza Type A (PCR) Influenza Type B (PCR) M. pneumoniae (PCR) Parainfluenza 1 (PCR) Parainfluenza 2 (PCR) Parainfluenza 3 (PCR) Parainfluenza 4 (PCR) RSV (PCR) Entero/Rhino (PCR) Salmonella (PCR) 05/08/19 05/08/19 05/08/19 14:28 14:32 16:00 WBC RBC Hgb Hct MCV MCH MCHC RDW Plt Count Neut % (Auto) Lymph % (Auto) Kaufman % (Auto) Eos % (Auto) Baso % (Auto) Neut # (Auto) Lymph # (Auto) Kaufman # (Auto) Eos # (Auto) Baso # (Auto) Sodium Potassium Chloride Carbon Dioxide BUN Creatinine Estimated GFR BUN/Creatinine Ratio Glucose Lactate Calcium Magnesium Total Bilirubin AST ALT Alkaline Phosphatase Total Creatine Kinase CK-MB (CK-2) CK-MB (CK-2) Rel Index Troponin I NT-Pro-B Natriuret Pep Total Protein Albumin Globulin Albumin/Globulin Ratio Amylase Lipase Procalcitonin Ur Bilirubin Confirm Negative Urine RBC 0-1/hpf Urine WBC 5-10/hpf H Ur Squamous Epith Cells 0-1 /hpf Ur Transition Epith Cell 0-1/hpf Urine Bacteria Moderate (10-30) H Hyaline Casts 30-100/lpf Granular Casts 10-30/lpf WBC Casts 5-10/lpf H Urine Mucus 2+ H Ur Culture Indicated? Specimen cultured Gastric Fluid pH Cancelled Gastric Occult Blood Cancelled Stool Occult Blood Stl C. cayetanensis PCR Stool Rotavirus (PCR) Stool Adenovirus (PCR) Stool Astrovirus (PCR) Stool Cryptosporidium PCR Stl E.coli Shiga Tox PCR St Sh/Enteroin Ecoli PCR Stool E coli O157 PCR Stl Enterotoxigenic E PCR Stool EPEC (PCR) Stl E. histolytica PCR Stool Giardia Lamblia PCR Stool Sapovirus (PCR) Stl P. shigelloides PCR St Y.enterocolitica PCR Stool Vibrio (PCR) Stl Vibrio cholerae PCR Stl Enteroaggr Ecoli PCR Stl Norovirus GI/GII PCR Chlamy pneumoniae PCR Not detected Adenovirus (PCR) Not detected B.parapertussis DNA PCR Not detected Campylobacter (PCR) C. difficile Tox (PCR) Coronavirus OC43 (PCR) Not detected Coronavirus HKU1 (PCR) Not detected Coronavirus 229E (PCR) Not detected Coronavirus NL63 (PCR) Not detected Human Metapneumovir PCR Not detected Influenza Type A (PCR) Not detected Influenza Type B (PCR) Not detected M. pneumoniae (PCR) Not detected Parainfluenza 1 (PCR) Not detected Parainfluenza 2 (PCR) Not detected Parainfluenza 3 (PCR) Not detected Parainfluenza 4 (PCR) Not detected RSV (PCR) Not detected Entero/Rhino (PCR) Not detected Salmonella (PCR) 05/08/19 05/08/19 05/08/19 16:00 16:00 18:01 WBC RBC Hgb Hct MCV MCH MCHC RDW Plt Count Neut % (Auto) Lymph % (Auto) Kaufman % (Auto) Eos % (Auto) Baso % (Auto) Neut # (Auto) Lymph # (Auto) Kaufman # (Auto) Eos # (Auto) Baso # (Auto) Sodium Potassium Chloride Carbon Dioxide BUN Creatinine Estimated GFR BUN/Creatinine Ratio Glucose Lactate Calcium Magnesium 1.9 Total Bilirubin AST ALT Alkaline Phosphatase Total Creatine Kinase CK-MB (CK-2) CK-MB (CK-2) Rel Index Troponin I 0.017 NT-Pro-B Natriuret Pep Total Protein Albumin Globulin Albumin/Globulin Ratio Amylase Lipase Procalcitonin Ur Bilirubin Confirm Urine RBC Urine WBC Ur Squamous Epith Cells Ur Transition Epith Cell Urine Bacteria Hyaline Casts Granular Casts WBC Casts Urine Mucus Ur Culture Indicated? Gastric Fluid pH Gastric Occult Blood Stool Occult Blood Negative Stl C. cayetanensis PCR Not detected Stool Rotavirus (PCR) Not detected Stool Adenovirus (PCR) Not detected Stool Astrovirus (PCR) Not detected Stool Cryptosporidium PCR Not detected Stl E.coli Shiga Tox PCR Not detected St Sh/Enteroin Ecoli PCR Not detected Stool E coli O157 PCR Not Reportable Stl Enterotoxigenic E PCR Not detected Stool EPEC (PCR) Not detected Stl E. histolytica PCR Not detected Stool Giardia Lamblia PCR Not detected Stool Sapovirus (PCR) Not detected Stl P. shigelloides PCR Not detected St Y.enterocolitica PCR Not detected Stool Vibrio (PCR) Not detected Stl Vibrio cholerae PCR Not detected Stl Enteroaggr Ecoli PCR Not detected Stl Norovirus GI/GII PCR Not detected Chlamy pneumoniae PCR Adenovirus (PCR) B.parapertussis DNA PCR Campylobacter (PCR) Not detected C. difficile Tox (PCR) Not detected Coronavirus OC43 (PCR) Coronavirus HKU1 (PCR) Coronavirus 229E (PCR) Coronavirus NL63 (PCR) Human Metapneumovir PCR Influenza Type A (PCR) Influenza Type B (PCR) M. pneumoniae (PCR) Parainfluenza 1 (PCR) Parainfluenza 2 (PCR) Parainfluenza 3 (PCR) Parainfluenza 4 (PCR) RSV (PCR) Entero/Rhino (PCR) Salmonella (PCR) Not detected Assessment & Plan Assessment & Plan narrative: 64-year-old female with a complex medical history who presents with 2 weeks of fever, cough, shortness of breath, diarrhea, headache and malaise -patient has a complex cardiac history including hypertrophic cardiomyopathy -echo done in the ER reveals normal LV function -despite elevated proBNP, chest x-ray negative patient does not appear to have heart failure -she did receive Lasix in the emergency department -agree with ruling out CoVid- 19, patient has multiple symptoms which are highly suspicious -respiratory panel negative, GI panel negative -defer antibiotics at this time 2. Abdominal pain and diarrhea, associated fever -mildly elevated LFT -will obtain CT of the chest abdomen and pelvis to rule out 1. pneumonia and 2. acute colitis -further med recommendations pending the result 3. Hypertrophic cardiomyopathy status post septal myomectomy -continue metoprolol -4. Type 2 diabetes -will hold her glipizide and metformin in the hospital -will start sliding scale insulin and add low-dose Lantus 5. Hypertension -continue lisinopril and metoprolol Patient will be placed on DVT prophylaxis show made a be made NPO this evening, Patient is a full code and will note that her record accordingly
[2019-05-09] VITALS (10 sets, daily range): BP systolic 82–134; BP diastolic 43–72; PULSE 65–84; RESP 16–20; TEMP 36.1–36.9; O2SAT 89–96
[2019-05-09] MEDS: DEXTROSE 5%-0.45NS W/KCL 20MEQ 1,000 ML 100 MEQ IV ×2 (00:06→13:10)
--- NOTE | 2019-05-09 00:32 | PC.NURSE ---
Late Entry: NS 150 ml/hour infusion paused at 2125 hours.
[2019-05-09 05:52] LABS: Add Manual Diff / Slide Review NO; Basophils Absolute Auto 0 /uL (0-100); Basophils Percent Auto 0.5 % (0-2); Eosinophils Absolute Auto 100 /uL (0-450); Eosinophils Percent Auto 1.1 % (2-4); Hematocrit 42.8 % (36-46); Lymphocytes Absolute Auto 2000 /uL (1100-4500); Lymphocytes Percent Auto 26.1 % (25-40); Mean Corpuscular HGB Conc 32.8 % (30-36); Mean Corpuscular Hemoglobin 30.3 PG (26-34); Mean Corpuscular Volume 92.4 fL (80-100); Monocytes Absolute Auto 1200 /uL (0-900); Monocytes Percent Auto 15.6 % (3-14); Neutrophils Absolute Auto 4300 /uL (1500-7000); Neutrophils Percent Auto 56.7 % (50-75); Platelet Count 255 X10^3/uL (150-400); Red Blood Cell Count 4.63 X10^6/uL (4.0-5.2); Red Cell Distribution Width 13.9 % (11.6-14.8); White Blood Cell Count 7.6 X10^3/uL (4.5-11.0)
[2019-05-09 06:18] LABS: BUN Creatinine Ratio 10.7 (6-22); Blood Urea Nitrogen 8 mg/dL (7-17); Calcium 8.9 mg/dL (8.4-10.2); Carbon Dioxide 27 mmol/L (22-32); Chloride 104 mmol/L (98-107); Estimated Glomerular Filt Rate > 60.0 mL/min (>60); Glucose 77 mg/dL (80-110); HEMOLYSIS < 15 (0-50); Potassium 3.9 mmol/L (3.4-5.1); Sodium 139 mmol/L (137-145)
[2019-05-09] MEDS: HYDROMORPHONE 0.5 MG INJ IV (06:23)
[2019-05-09] MEDS: PANTOPRAZOLE 40 MG TABLET PO (08:30)
[2019-05-09] MEDS: FLUoxetine 20 MG CAPSULE PO ×2 (08:31→21:33)
[2019-05-09] MEDS: ONDANSETRON 4 MG/2 ML INJ IV ×2 (08:31→14:37)
[2019-05-09] MEDS: ENOXAPARIN 40 MG/0.4 ML SYRINGE SUBCUT (08:31)
[2019-05-09] MEDS: METOPROLOL IR 25 MG TABLET PO (08:31)
[2019-05-09] MEDS: lisinopriL 20 MG TABLET PO (08:31)
--- NOTE | 2019-05-09 10:41 | PC.NURSE ---
0830: Patient resting in bed with at bedside. Droplet precautions maintained. Patient c/o nausea, zophran IV PRN given as prescribed. Patient ambulated to bathroom, noted increased WOB during activity, rr at 24, O2 at 83%. Returned to bed after void and place back on 2L O2 NC. Patient voided 125ml of dark, clear yellow urine. No diarrhea. Patient is steady on feet, denies dizziness, no use of FWW. Patient is receiving prescribed IV fluids, remains NPO at this time. Patient requests the SCD's remain off for the time being. Denies further needs at this time. Call light in reach.
[2019-05-09] MEDS: SODIUM CHLORIDE 0.9% 1,000 ML 1000 ML IV (13:30)
--- NOTE | 2019-05-09 14:54 | P.PN_ITS ---
Subjective Subjective Date Patient Seen: 05/09/19 Time Patient Seen: 11:00 Interval history: Patient is a 64-year-old female with a complex medical history including hypertrophic cardiomyopathy status post ventricular septal myomectomy, coronary artery disease, type 2 diabetes, hyperlipidemia, hypertension, history of myocardial infarction, who was admitted for further evaluation of fevers and shortness of breath. Initial workup including a limited echo was unrevealing and did not show any pericardial effusion or pleural effusions. She underwent a CT chest abdomen pelvis which also was unremarkable and did not show any enteritis or pulmonary infiltrates. During the course of today patient is now somewhat hypotensive, but not tachycardic and am currently attempting response to fluids. Viral respiratory panel, as well as GI stool panel were negative. She is being evaluated for COVID- 19 given presentation of fever and shortness of breath. Her was also ill with fever and shortness of breath about a week prior to her. Exam Vital Signs (past 8 hours): - 05/09/19 07:55 05/09/19 09:00 05/09/19 12:30 Temperature 97.0 F L 97.0 F L Pulse Rate 77 65 Respiratory Rate 16 16 Blood Pressure 104/48 L 86/44 L Pulse Oximetry 91 94 93 05/09/19 13:38 Temperature Pulse Rate Respiratory Rate Blood Pressure Pulse Oximetry 89 L Oxygen Delivery Method Room Air Oxygen Flow Rate 2 Narrative Exam Narrative: GENERAL APPEARANCE: Elderly female in no acute distress, laying in hospital bed. SKIN: Inspection of the skin reveals no rashes, ulcerations or petechiae. HEENT: Normocephalic atraumatic, extraocular muscles are intact, oropharynx is clear and mucous membranes are moist, neck is supple without adenopathy NECK: Supple and symmetric. There was no thyroid enlargement, and no tenderness, or masses were felt. CHEST: Normal AP diameter and normal contour without any kyphoscoliosis. LUNGS: Auscultation of the lungs revealed no wheezes, rhonchi, or rales. CARDIOVASCULAR: There was a regular rate and rhythm without any murmurs, gallops, rubs. Peripheral pulses were 2+ and symmetric. ABDOMEN: Soft and nontender with normal bowel sounds. No ascites was noted. MUSCULOSKELETAL: There was no tenderness or effusions noted. Muscle strength and tone were normal. EXTREMITIES: No cyanosis, clubbing or edema. NEUROLOGIC: Alert and oriented x 3. Normal affect. Strength is +5/5 in the Upper Extremities and Lower Extremities Bilaterally. Sensation to touch was normal. Objective Labs Result Diagrams: 05/09/19 05:15 05/09/19 05:15 Labs: Laboratory Results - last 24 hr 05/08/19 05/08/19 05/08/19 14:03 14:03 14:03 WBC RBC Hgb Hct MCV MCH MCHC RDW Plt Count Neut % (Auto) Lymph % (Auto) [place] % (Auto) Eos % (Auto) Baso % (Auto) Neut # (Auto) Lymph # (Auto) [place] # (Auto) Eos # (Auto) Baso # (Auto) Sodium Potassium Chloride Carbon Dioxide BUN Creatinine Estimated GFR BUN/Creatinine Ratio Glucose Calcium Magnesium Total Creatine Kinase 49 CK-MB (CK-2) TNP CK-MB (CK-2) Rel Index TNP Troponin I 0.014 NT-Pro-B Natriuret Pep 1670 H Procalcitonin < 0.05 Ur Bilirubin Confirm Urine RBC Urine WBC Ur Squamous Epith Cells Ur Transition Epith Cell Urine Bacteria Hyaline Casts Granular Casts WBC Casts Urine Mucus Ur Culture Indicated? Gastric Fluid pH Gastric Occult Blood Stool Occult Blood Stl C. cayetanensis PCR Stool Rotavirus (PCR) Stool Adenovirus (PCR) Stool Astrovirus (PCR) Stool Cryptosporidium PCR Stl E.coli Shiga Tox PCR St Sh/Enteroin Ecoli PCR Stool E coli O157 PCR Stl Enterotoxigenic E PCR Stool EPEC (PCR) Stl E. histolytica PCR Stool Giardia Lamblia PCR Stool Sapovirus (PCR) Stl P. shigelloides PCR St Y.enterocolitica PCR Stool Vibrio (PCR) Stl Vibrio cholerae PCR Stl Enteroaggr Ecoli PCR Stl Norovirus GI/GII PCR Chlamy pneumoniae PCR Adenovirus (PCR) B.parapertussis DNA PCR Campylobacter (PCR) C. difficile Tox (PCR) Coronavirus OC43 (PCR) Coronavirus HKU1 (PCR) Coronavirus 229E (PCR) Coronavirus NL63 (PCR) Human Metapneumovir PCR Influenza Type A (PCR) Influenza Type B (PCR) M. pneumoniae (PCR) Parainfluenza 1 (PCR) Parainfluenza 2 (PCR) Parainfluenza 3 (PCR) Parainfluenza 4 (PCR) RSV (PCR) Entero/Rhino (PCR) Salmonella (PCR) 05/08/19 05/08/19 05/08/19 14:28 14:32 16:00 WBC RBC Hgb Hct MCV MCH MCHC RDW Plt Count Neut % (Auto) Lymph % (Auto) [place] % (Auto) Eos % (Auto) Baso % (Auto) Neut # (Auto) Lymph # (Auto) [place] # (Auto) Eos # (Auto) Baso # (Auto) Sodium Potassium Chloride Carbon Dioxide BUN Creatinine Estimated GFR BUN/Creatinine Ratio Glucose Calcium Magnesium Total Creatine Kinase CK-MB (CK-2) CK-MB (CK-2) Rel Index Troponin I NT-Pro-B Natriuret Pep Procalcitonin Ur Bilirubin Confirm Negative Urine RBC 0-1/hpf Urine WBC 5-10/hpf H Ur Squamous Epith Cells 0-1 /hpf Ur Transition Epith Cell 0-1/hpf Urine Bacteria Moderate (10-30) H Hyaline Casts 30-100/lpf Granular Casts 10-30/lpf WBC Casts 5-10/lpf H Urine Mucus 2+ H Ur Culture Indicated? Specimen cultured Gastric Fluid pH Cancelled Gastric Occult Blood Cancelled Stool Occult Blood Stl C. cayetanensis PCR Stool Rotavirus (PCR) Stool Adenovirus (PCR) Stool Astrovirus (PCR) Stool Cryptosporidium PCR Stl E.coli Shiga Tox PCR St Sh/Enteroin Ecoli PCR Stool E coli O157 PCR Stl Enterotoxigenic E PCR Stool EPEC (PCR) Stl E. histolytica PCR Stool Giardia Lamblia PCR Stool Sapovirus (PCR) Stl P. shigelloides PCR St Y.enterocolitica PCR Stool Vibrio (PCR) Stl Vibrio cholerae PCR Stl Enteroaggr Ecoli PCR Stl Norovirus GI/GII PCR Chlamy pneumoniae PCR Not detected Adenovirus (PCR) Not detected B.parapertussis DNA PCR Not detected Campylobacter (PCR) C. difficile Tox (PCR) Coronavirus OC43 (PCR) Not detected Coronavirus HKU1 (PCR) Not detected Coronavirus 229E (PCR) Not detected Coronavirus NL63 (PCR) Not detected Human Metapneumovir PCR Not detected Influenza Type A (PCR) Not detected Influenza Type B (PCR) Not detected M. pneumoniae (PCR) Not detected Parainfluenza 1 (PCR) Not detected Parainfluenza 2 (PCR) Not detected Parainfluenza 3 (PCR) Not detected Parainfluenza 4 (PCR) Not detected RSV (PCR) Not detected Entero/Rhino (PCR) Not detected Salmonella (PCR) 05/08/19 05/08/19 05/08/19 16:00 16:00 18:01 WBC RBC Hgb Hct MCV MCH MCHC RDW Plt Count Neut % (Auto) Lymph % (Auto) [place] % (Auto) Eos % (Auto) Baso % (Auto) Neut # (Auto) Lymph # (Auto) [place] # (Auto) Eos # (Auto) Baso # (Auto) Sodium Potassium Chloride Carbon Dioxide BUN Creatinine Estimated GFR BUN/Creatinine Ratio Glucose Calcium Magnesium 1.9 Total Creatine Kinase CK-MB (CK-2) CK-MB (CK-2) Rel Index Troponin I 0.017 NT-Pro-B Natriuret Pep Procalcitonin Ur Bilirubin Confirm Urine RBC Urine WBC Ur Squamous Epith Cells Ur Transition Epith Cell Urine Bacteria Hyaline Casts Granular Casts WBC Casts Urine Mucus Ur Culture Indicated? Gastric Fluid pH Gastric Occult Blood Stool Occult Blood Negative Stl C. cayetanensis PCR Not detected Stool Rotavirus (PCR) Not detected Stool Adenovirus (PCR) Not detected Stool Astrovirus (PCR) Not detected Stool Cryptosporidium PCR Not detected Stl E.coli Shiga Tox PCR Not detected St Sh/Enteroin Ecoli PCR Not detected Stool E coli O157 PCR Not Reportable Stl Enterotoxigenic E PCR Not detected Stool EPEC (PCR) Not detected Stl E. histolytica PCR Not detected Stool Giardia Lamblia PCR Not detected Stool Sapovirus (PCR) Not detected Stl P. shigelloides PCR Not detected St Y.enterocolitica PCR Not detected Stool Vibrio (PCR) Not detected Stl Vibrio cholerae PCR Not detected Stl Enteroaggr Ecoli PCR Not detected Stl Norovirus GI/GII PCR Not detected Chlamy pneumoniae PCR Adenovirus (PCR) B.parapertussis DNA PCR Campylobacter (PCR) Not detected C. difficile Tox (PCR) Not detected Coronavirus OC43 (PCR) Coronavirus HKU1 (PCR) Coronavirus 229E (PCR) Coronavirus NL63 (PCR) Human Metapneumovir PCR Influenza Type A (PCR) Influenza Type B (PCR) M. pneumoniae (PCR) Parainfluenza 1 (PCR) Parainfluenza 2 (PCR) Parainfluenza 3 (PCR) Parainfluenza 4 (PCR) RSV (PCR) Entero/Rhino (PCR) Salmonella (PCR) Not detected 05/09/19 05/09/19 05:15 05:15 WBC 7.6 RBC 4.63 Hgb 14.0 Hct 42.8 MCV 92.4 MCH 30.3 MCHC 32.8 RDW 13.9 Plt Count 255 Neut % (Auto) 56.7 Lymph % (Auto) 26.1 [place] % (Auto) 15.6 H Eos % (Auto) 1.1 L Baso % (Auto) 0.5 Neut # (Auto) 4300 Lymph # (Auto) 2000 [place] # (Auto) 1200 H Eos # (Auto) 100 Baso # (Auto) 0 Sodium 139 Potassium 3.9 Chloride 104 Carbon Dioxide 27 BUN 8 Creatinine 0.75 Estimated GFR > 60.0 BUN/Creatinine Ratio 10.7 Glucose 77 L Calcium 8.9 Magnesium Total Creatine Kinase CK-MB (CK-2) CK-MB (CK-2) Rel Index Troponin I NT-Pro-B Natriuret Pep Procalcitonin Ur Bilirubin Confirm Urine RBC Urine WBC Ur Squamous Epith Cells Ur Transition Epith Cell Urine Bacteria Hyaline Casts Granular Casts WBC Casts Urine Mucus Ur Culture Indicated? Gastric Fluid pH Gastric Occult Blood Stool Occult Blood Stl C. cayetanensis PCR Stool Rotavirus (PCR) Stool Adenovirus (PCR) Stool Astrovirus (PCR) Stool Cryptosporidium PCR Stl E.coli Shiga Tox PCR St Sh/Enteroin Ecoli PCR Stool E coli O157 PCR Stl Enterotoxigenic E PCR Stool EPEC (PCR) Stl E. histolytica PCR Stool Giardia Lamblia PCR Stool Sapovirus (PCR) Stl P. shigelloides PCR St Y.enterocolitica PCR Stool Vibrio (PCR) Stl Vibrio cholerae PCR Stl Enteroaggr Ecoli PCR Stl Norovirus GI/GII PCR Chlamy pneumoniae PCR Adenovirus (PCR) B.parapertussis DNA PCR Campylobacter (PCR) C. difficile Tox (PCR) Coronavirus OC43 (PCR) Coronavirus HKU1 (PCR) Coronavirus 229E (PCR) Coronavirus NL63 (PCR) Human Metapneumovir PCR Influenza Type A (PCR) Influenza Type B (PCR) M. pneumoniae (PCR) Parainfluenza 1 (PCR) Parainfluenza 2 (PCR) Parainfluenza 3 (PCR) Parainfluenza 4 (PCR) RSV (PCR) Entero/Rhino (PCR) Salmonella (PCR) Assessment & Plan Assessment & Plan narrative: Patient is a 64-year-old female with a complex medical history including hypertrophic cardiomyopathy status post ventricular septal myomectomy, coronary artery disease, type 2 diabetes, hyperlipidemia, hypertension, history of myocardial infarction, who was admitted for further evaluation of fevers and shortness of breath. Etiology is unclear at this time, and although history is consistent with COVID-19 infection, radiographic evidence is not. 64-year-old female with a complex medical history who presents with 2 weeks of fever, cough, shortness of breath, diarrhea, headache and malaise, likely a viral syndrome based on current evidence. -patient has a complex cardiac history including hypertrophic cardiomyopathy -echo done in the ER reveals normal LV function -despite elevated proBNP, chest x-ray negative patient does not appear to have heart failure, she did receive Lasix in the emergency department. -agree with ruling out CoVid- 19, patient has multiple symptoms which are highly suspicious -respiratory panel negative, GI panel negative -no indication for antibiotics at this time. -check TSH, ESR / CRP. -she is requiring 2L of supplemental oxygen at this time to maintain an O2 sat of 89%. Continue supplemental oxygen with goal O2 >90%. 2. Abdominal pain and diarrhea, associated fever -mildly elevated LFT, GI panel negative as noted above. -CT abdomen negative for infectious etiologies -continue to follow LFTs 3. Hypertrophic cardiomyopathy status post septal myomectomy -continue metoprolol, will decrease slightly today given current hypotension if she is responsive to fluids. -4. Type 2 diabetes -will hold her glipizide and metformin in the hospital -will start sliding scale insulin and add low-dose Lantus 5. Hypertension -continue metoprolol as noted above. Hold lisinopril. DVT: Lovenox daily Patient is a full code Dispo: Pending resolution of hypoxia. Patient does not need to stay for COVID ru le out if she is normotensive and saturations are improved. Anticipated discharge home in the next 1-2 days.
--- NOTE | 2019-05-09 15:42 | CM.DANOTE ---
Discharge Planning/Care Management DCP: assessment: case received and discussed in Team Rounds. Beside Rounds not done: pt is on a rule out COVID 19 protocol. Pt is a 64 year old female who admitted to care of hospitalist team last night. PCP: Dr. Maria D Castanon Payer: [facility]. Dr. Solano stated to Team that pt has been at home self quarantined (her has had symptoms also and has not been tested. Dr. Solano has advised him to call his PCP and describe symtoms and to follow her advice)...Pt's symptoms worsened and she is now on the rule out protocol. Dr. Solano also confirms that once pt is without a fever, is mobilizing and no longer needs oxygen she will be safe to go home, await test results and continue the self quarantine recovery process. He says he does not see any d/c needs that pt will have at this point. DCP team will be following. CM Discharge Assessment Start: 05/09/19 15:41 Freq: Status: Active Protocol: Document 05/09/19 15:41 ITV (Rec: 05/09/19 15:42 ITV [id number]) Discharge Planning Assessment Advance Directives? No History Provided By Medical Record Prior Living Arrangements House Household Members spouse Is patient alert and oriented? Yes Next Review Type Continued Stay Review
[2019-05-09] MEDS: METOPROLOL IR 25 MG TABLET 12.5 MG PO (21:33)
[2019-05-09] MEDS: ATORVASTATIN 20 MG TABLET 40 MG PO (21:34)
[2019-05-09] MEDS: HYDROCODONE/ACET 5/325 TABLET 1 TAB PO (21:44)
[2019-05-10] VITALS (9 sets, daily range): BP systolic 94–131; BP diastolic 53–71; PULSE 61–81; RESP 16–20; TEMP 36.1–36.9; O2SAT 92–95
[2019-05-10] MEDS: DEXTROSE 5%-0.45NS W/KCL 20MEQ 1,000 ML 100 MEQ IV (01:20)
[2019-05-10 05:22] LABS: Add Manual Diff / Slide Review NO; Basophils Absolute Auto 100 /uL (0-100); Basophils Percent Auto 1.4 % (0-2); Eosinophils Absolute Auto 100 /uL (0-450); Eosinophils Percent Auto 1.7 % (2-4); Lymphocytes Absolute Auto 1700 /uL (1100-4500); Lymphocytes Percent Auto 26.9 % (25-40); Mean Corpuscular HGB Conc 33.2 % (30-36); Mean Corpuscular Hemoglobin 30.6 PG (26-34); Mean Corpuscular Volume 91.9 fL (80-100); Monocytes Absolute Auto 900 /uL (0-900); Monocytes Percent Auto 14.9 % (3-14); Neutrophils Absolute Auto 3500 /uL (1500-7000); Neutrophils Percent Auto 55.1 % (50-75); Platelet Count 211 X10^3/uL (150-400); Red Blood Cell Count 4.24 X10^6/uL (4.0-5.2); White Blood Cell Count 6.3 X10^3/uL (4.5-11.0)
[2019-05-10 05:34] LABS: Alanine Aminotransferase 33 IU/L (<35); Albumin 3.3 g/dL (3.5-5.0); Albumin Globulin Ratio 1.1 (1.0-2.8); Alkaline Phosphatase 77 U/L (38-126); Aspartate Aminotransferase 39 IU/L (14-36); BUN Creatinine Ratio 6.1 (6-22); Bilirubin Total 0.5 mg/dL (0.2-1.3); Bilirubin Unconjugated 0.3 mg/dL (0.0-1.1); Blood Urea Nitrogen 4 mg/dL (7-17); Calcium 8.5 mg/dL (8.4-10.2); Carbon Dioxide 28 mmol/L (22-32); Chloride 105 mmol/L (98-107); Estimated Glomerular Filt Rate > 60.0 mL/min (>60); Glucose 110 mg/dL (80-110); HEMOLYSIS < 15 (0-50); Magnesium 1.6 mg/dL (1.6-2.3); Potassium 4.3 mmol/L (3.4-5.1); Sodium 137 mmol/L (137-145); Total Protein 6.3 g/dL (6.3-8.2)
[2019-05-10 05:36] LABS: C-Reactive Protein Quant 2.5 mg/dL (<1.0)
[2019-05-10 06:06] LABS: Erythrocyte Sedimentation Rate 46 MM/HR (0-20)
[2019-05-10] MEDS: PANTOPRAZOLE 40 MG TABLET PO (06:30)
[2019-05-10] MEDS: ENOXAPARIN 40 MG/0.4 ML SYRINGE SUBCUT (09:25)
[2019-05-10] MEDS: FLUoxetine 20 MG CAPSULE PO ×2 (09:25→20:17)
[2019-05-10] MEDS: METOPROLOL IR 25 MG TABLET 12.5 MG PO ×2 (09:26→20:17)
--- NOTE | 2019-05-10 10:00 | PC.NURSE ---
Addendum entered by Nilsa Carvalho R.N. 05/10/19 15:23: Spoke with physician, patient saline locked. Original Note: Patient A/Ox3, up to restroom, voiding clear cara urine, SBA. Back to bed an titrated off O2. Patient denies SOB or increased WOB during activity. Able to hold conversation and remain in the low 90's without O2, will continue to monitor. Lung sounds are diminished, with bilateral posterior expiratory crackles. Patient is eating, drinking, denies n/v. No diarrhea yet this morning.
[2019-05-10] MEDS: CEFTRIAXONE 1 GM/50 ML FROZ.PIGGY IV (13:23)
[2019-05-10] MEDS: LOPERAMIDE 2 MG CAPSULE PO (13:45)
--- NOTE | 2019-05-10 15:18 | CM.DPC ---
DCP Cont: Discussed patient during team rounds. Patient continues to be in quaranteen/isolation. Patient could go home today, and will continue with self-quaranteen at home. Results from COVD-19 are still pending. P: DCP to continue to follow. Patient should be able to discharge home, possibly today. Shasta Sal RN/Speech And Language Clinician
--- NOTE | 2019-05-10 15:31 | P.PN_ITS ---
Subjective Subjective Date Patient Seen: 05/10/19 Time Patient Seen: 15:31 Interval history: Patient is a 64-year-old female with a complex medical history including hypertrophic cardiomyopathy status post ventricular septal myomectomy, coronary artery disease, type 2 diabetes, hyperlipidemia, hypertension, history of myocardial infarction, who was admitted for further evaluation of fevers and shortness of breath. Initial workup including a limited echo was unrevealing and did not show any pericardial effusion or pleural effusions. She underwent a CT chest abdomen pelvis which also was unremarkable and did not show any enteritis or pulmonary infiltrates. During the course of today patient is now somewhat hypotensive, but not tachycardic and am currently attempting response to fluids. Viral respiratory panel, as well as GI stool panel were negative. She is being evaluated for COVID- 19 given presentation of fever and shortness of breath. Her was also ill with fever and shortness of breath about a week prior to her. Exam Vital Signs (past 8 hours): - 05/10/19 08:25 05/10/19 12:00 05/10/19 12:10 Temperature 97.8 F Pulse Rate 76 80 Respiratory Rate 18 18 Blood Pressure 120/57 L 110/53 L Pulse Oximetry 95 93 Oxygen Delivery Method Room Air Oxygen Flow Rate 0 Narrative Exam Narrative: GENERAL APPEARANCE: Elderly female in no acute distress, laying in hospital bed. SKIN: Inspection of the skin reveals no rashes, ulcerations or petechiae. HEENT: Normocephalic atraumatic, extraocular muscles are intact, oropharynx is clear and mucous membranes are moist, neck is supple without adenopathy NECK: Supple and symmetric. There was no thyroid enlargement, and no tenderness, or masses were felt. CHEST: Normal AP diameter and normal contour without any kyphoscoliosis. LUNGS: Auscultation of the lungs revealed no wheezes, rhonchi, or rales. CARDIOVASCULAR: There was a regular rate and rhythm without any murmurs, gallops, rubs. Peripheral pulses were 2+ and symmetric. ABDOMEN: Soft and nontender with normal bowel sounds. No ascites was noted. MUSCULOSKELETAL: There was no tenderness or effusions noted. Muscle strength and tone were normal. EXTREMITIES: No cyanosis, clubbing or edema. NEUROLOGIC: Alert and oriented x 3. Normal affect. Strength is +5/5 in the Upper Extremities and Lower Extremities Bilaterally. Sensation to touch was normal. Objective Labs Result Diagrams: 05/10/19 04:50 05/10/19 04:50 Labs: Laboratory Results - last 24 hr 05/10/19 05/10/19 05/10/19 04:50 04:50 04:50 WBC 6.3 RBC 4.24 Hgb 13.0 Hct 39.0 MCV 91.9 MCH 30.6 MCHC 33.2 RDW 14.0 Plt Count 211 Neut % (Auto) 55.1 Lymph % (Auto) 26.9 [place] % (Auto) 14.9 H Eos % (Auto) 1.7 L Baso % (Auto) 1.4 Neut # (Auto) 3500 Lymph # (Auto) 1700 [place] # (Auto) 900 Eos # (Auto) 100 Baso # (Auto) 100 ESR 46 H Sodium 137 Potassium 4.3 Chloride 105 Carbon Dioxide 28 BUN 4 L Creatinine 0.66 Estimated GFR > 60.0 BUN/Creatinine Ratio 6.1 Glucose 110 Calcium 8.5 Magnesium 1.6 Total Bilirubin 0.5 Conjugated Bilirubin 0.0 Unconjugated Bilirubin 0.3 AST 39 H ALT 33 Alkaline Phosphatase 77 C-Reactive Protein Total Protein 6.3 Albumin 3.3 L Globulin 3.0 Albumin/Globulin Ratio 1.1 05/10/19 04:50 WBC RBC Hgb Hct MCV MCH MCHC RDW Plt Count Neut % (Auto) Lymph % (Auto) [place] % (Auto) Eos % (Auto) Baso % (Auto) Neut # (Auto) Lymph # (Auto) [place] # (Auto) Eos # (Auto) Baso # (Auto) ESR Sodium Potassium Chloride Carbon Dioxide BUN Creatinine Estimated GFR BUN/Creatinine Ratio Glucose Calcium Magnesium Total Bilirubin Conjugated Bilirubin Unconjugated Bilirubin AST ALT Alkaline Phosphatase C-Reactive Protein 2.5 H Total Protein Albumin Globulin Albumin/Globulin Ratio Assessment & Plan Assessment & Plan narrative: Patient is a 64-year-old female with a complex medical history including hypertrophic cardiomyopathy status post ventricular septal myomectomy, coronary artery disease, type 2 diabetes, hyperlipidemia, hypertension, history of myocardial infarction, who was admitted for further evaluation of fevers and shortness of breath. Etiology is unclear at this time, and although history is consistent with COVID-19 infection, radiographic evidence is not. 64-year-old female with a complex medical history who presents with 2 weeks of fever, cough, shortness of breath, diarrhea, headache and malaise, likely a viral syndrome based on current evidence. 1. Fever, shortness of breath with hypoxia, acute, present on admission, improved -patient has a complex cardiac history including hypertrophic cardiomyopathy -echo done in the ER reveals normal LV function, no pericardial effusion -despite elevated proBNP, chest x-ray negative patient does not appear to have heart failure, she did receive Lasix in the emergency department. -history highly consistent with possible COVID - 19 infection, pending result (test sent 05/07) -respiratory panel negative, GI panel negative -UA was positive and culture returned with mixed rivera. Will treat for acute cystitis with ceftriaxone x3 days if still here. -ESR and CRP mildly elevated, but not specific. Will sent TSH as well. -off of supplemental oxygen today -trial of immodium today for continued diarrhea 2. Abdominal pain and diarrhea, associated fever -mildly elevated LFT, GI panel negative as noted above. -CT abdomen negative for infectious etiologies -continue to follow LFTs 3. Hypertrophic cardiomyopathy status post septal myomectomy -continue metoprolol at decreased dose for hypotension yesterday. -4. Type 2 diabetes -continue to hold her glipizide and metformin in the hospital -continue sliding scale insulin and add low-dose Lantus 5. Hypertension -continue metoprolol as noted above. Hold lisinopril. 6. Acute cystitis - given presenting symptoms will treat for simple cystitis given UA with + WBC and WBC casts. - started ceftriaxone 1g q24 today, total course of 3 days total. DVT: Lovenox daily Patient is a full code Dispo: Pending resolution of hypoxia. Patient does not need to stay for COVID rule out if she is normotensive and saturations are improved. Anticipated discharge home in the next 1-2 days.
[2019-05-10] MEDS: ATORVASTATIN 20 MG TABLET 40 MG PO (20:17)
[2019-05-10] MEDS: DOCUSATE 100 MG CAPSULE PO (20:17)
[2019-05-11] VITALS: BP 112/47; PULSE 72; RESP 18; TEMP 37.6; O2SAT 93
[2019-05-11 00:20] VITALS: O2SAT 95
[2019-05-11 05:00] VITALS: BP 140/73; PULSE 75; RESP 18; TEMP 36.9; O2SAT 92
[2019-05-11 05:49] LABS: Add Manual Diff / Slide Review NO; Basophils Absolute Auto 0 /uL (0-100); Basophils Percent Auto 0.7 % (0-2); Eosinophils Absolute Auto 100 /uL (0-450); Hematocrit 39.8 % (36-46); Hemoglobin 13.2 g/dL (12.0-16.0); Lymphocytes Absolute Auto 1500 /uL (1100-4500); Lymphocytes Percent Auto 22.9 % (25-40); Mean Corpuscular HGB Conc 33.1 % (30-36); Mean Corpuscular Hemoglobin 30.4 PG (26-34); Mean Corpuscular Volume 91.9 fL (80-100); Monocytes Absolute Auto 1000 /uL (0-900); Monocytes Percent Auto 14.7 % (3-14); Neutrophils Absolute Auto 4100 /uL (1500-7000); Neutrophils Percent Auto 60.7 % (50-75); Platelet Count 211 X10^3/uL (150-400); Red Blood Cell Count 4.33 X10^6/uL (4.0-5.2); Red Cell Distribution Width 13.6 % (11.6-14.8); White Blood Cell Count 6.7 X10^3/uL (4.5-11.0)
[2019-05-11 05:59] LABS: Alanine Aminotransferase 31 IU/L (<35); Albumin 3.3 g/dL (3.5-5.0); Albumin Globulin Ratio 1.1 (1.0-2.8); Alkaline Phosphatase 80 U/L (38-126); Aspartate Aminotransferase 35 IU/L (14-36); Bilirubin Total 0.5 mg/dL (0.2-1.3); Bilirubin Unconjugated 0.4 mg/dL (0.0-1.1); Calcium 8.7 mg/dL (8.4-10.2); Carbon Dioxide 29 mmol/L (22-32); Chloride 104 mmol/L (98-107); Estimated Glomerular Filt Rate > 60.0 mL/min (>60); Globulin 3.1 g/dL (1.7-4.1); Glucose 105 mg/dL (80-110); HEMOLYSIS < 15 (0-50); Magnesium 1.3 mg/dL (1.6-2.3); Potassium 3.5 mmol/L (3.4-5.1); Sodium 137 mmol/L (137-145); Total Protein 6.4 g/dL (6.3-8.2)
[2019-05-11 06:01] LABS: BUN Creatinine Ratio 3.4 (6-22); Blood Urea Nitrogen 2 mg/dL (7-17)
[2019-05-11 06:43] LABS: TSH w/ Reflex to FT4 2.27 uIU/mL (0.47-4.68)
[2019-05-11] MEDS: PANTOPRAZOLE 40 MG TABLET PO (06:48)
[2019-05-11 08:06] VITALS: BP 139/69; PULSE 104; RESP 20; TEMP 36.4; O2SAT 93
[2019-05-11] MEDS: ENOXAPARIN 40 MG/0.4 ML SYRINGE SUBCUT (08:32)
[2019-05-11] MEDS: DOCUSATE 100 MG CAPSULE PO (08:32)
[2019-05-11] MEDS: FLUoxetine 20 MG CAPSULE PO (08:32)
[2019-05-11] MEDS: MAGNESIUM SULFATE 2 GM/50 ML PIGGYBACK IV (08:32)
[2019-05-11] MEDS: METOPROLOL IR 25 MG TABLET 12.5 MG PO (08:33)
--- NOTE | 2019-05-11 08:58 | P.DS_ITS ---
History of Present Illness History of Present Illness Date Patient Seen: 05/11/19 Time Patient Seen: 08:58 Chief complaint: Sick For 2 Weeks Narrative: As per Dr. Fan, Patient is a 64-year-old female with a complex medical history including hypertrophic cardiomyopathy status post ventricular septal myomectomy, coronary artery disease, type 2 diabetes, hyperlipidemia, hypertension, history of myocardial infarction, who was in her usual state of health until about 2 weeks ago. Patient reports that her has been sick with a viral illness. Patient over the past 2 weeks has had fever to 101, cough, headache, runny nose, and diarrhea. She has had significant fatigue. She describes having up to 8 loose stools per day at least for the past week. She has had no hematemesis melena or bright red blood per rectum. She has not had no hemoptysis. She has not traveled recently. She has only been exposed to her who is ill. Her has not traveled recently. He is employed by the . Because the patient continued to feel fatigued was not making any improvement she presented to the hospital for evaluation. She denies any orthopnea or PND. She has had no lower extremity edema. Patient underwent a chest x-ray in the emergency room which was negative for infiltrate, she did receive 1 dose of Lasix for presumed heart failure. Patient had a proBNP which was elevated at 1600. She is admitted to the hospital for further evaluation. Discharge Providers Provider Date of admission: 05/08/19 19:57 Discharge Date: 05/11/19 Primary care physician: Dillon Castanon MD Discharge provider: Raman Solano DO Summary Hospital Course Discharge Diagnosis: Please see problem list below in hospital course Hospital Course: Cheyenne Johnson is a 64-year-old female with a complex medical history including hypertrophic cardiomyopathy status post ventricular septal myomectomy, coronary artery disease, type 2 diabetes, hyperlipidemia, hypertension, history of myocardial infarction, who was admitted for further evaluation of fevers and shortness of breath. Etiology is unclear at this time but most likely due to a viral syndome. Although history is consistent with COVID-19 infection, radiographic evidence is not. Patient improved with supportive care and was no longer requiring supplemental oxygen on the day of discharge. Diarrhea and PO intake improved sufficient for discharge home on 05/11/2019. COVID 19 testing still pending, but did speak with the department of health who recommended following CDC recommendations for home care while test is pending, which was printed and given to the patient upon discharge. 1. Fever, shortness of breath with hypoxia, acute, present on admission, improved, likely viral syndrome. -patient has a complex cardiac history including hypertrophic cardiomyopathy -echo done in the ER revealed normal LV function, no pericardial effusion -despite elevated proBNP, chest x-ray negative patient does not appear to have heart failure, she did receive Lasix in the emergency department. Hypoxia resolved without additional lasix. -history highly consistent with possible COVID - 19 infection, pending result (test sent 05/07) -respiratory panel negative, GI panel negative -UA was positive and culture returned with mixed rivera. Treated with ceftriaxone x2 days which should be sufficient. -ESR and CRP mildly elevated, but not specific. TSH was unremarkable. -off of supplemental oxygen prior to discharge. immodium was given for continued diarrhea, which helped reduce the frequency. She tolerated a diet and was adequately hydrated at the time of discharge. 2. Abdominal pain and diarrhea, associated fever -mildly elevated LFT, GI panel negative as noted above. -CT abdomen negative for infectious etiologies -continue to follow LFTs 3. Hypertrophic cardiomyopathy status post septal myomectomy -continue home medications. Dosing was reduced temporarily however BP improved on day of discharge and patient can resume her home dosages. -4. Type 2 diabetes -no changes were made to her diabetic regimen. 5. Hypertension -continue metoprolol as noted above. Lisinopril can be resumed. 6. Acute cystitis - given presenting symptoms will treat for simple cystitis given UA with + WBC and WBC casts. - started ceftriaxone 1g q24, received two doses which should be sufficient for treatment given culture with mixed rivera. Dispo:Discharged home. Status at Discharge Cognitive/behavioral status at discharge: oriented Overall status at discharge: patient is progressing back to baseline Time Spent with Patient Time spent: Greater than 30 minutes Exam Vital Signs (past 8 hours): - 05/11/19 05:00 05/11/19 08:06 Temperature 98.4 F 97.5 F L Pulse Rate 75 104 H Respiratory Rate 18 20 Blood Pressure 140/73 139/69 Pulse Oximetry 92 93 Oxygen Delivery Method Room Air Oxygen Flow Rate 0 Narrative Exam Narrative: GENERAL APPEARANCE: Elderly female in no acute distress, laying in hospital bed. SKIN: Inspection of the skin reveals no rashes, ulcerations or petechiae. HEENT: Normocephalic atraumatic, extraocular muscles are intact, oropharynx is clear and mucous membranes are moist, neck is supple without adenopathy NECK: Supple and symmetric. There was no thyroid enlargement, and no tenderness, or masses were felt. CHEST: Normal AP diameter and normal contour without any kyphoscoliosis. LUNGS: Auscultation of the lungs revealed no wheezes, rhonchi, or rales. CARDIOVASCULAR: There was a regular rate and rhythm without any murmurs, gallops, rubs. Peripheral pulses were 2+ and symmetric. ABDOMEN: Soft and nontender with normal bowel sounds. No ascites was noted. MUSCULOSKELETAL: There was no tenderness or effusions noted. Muscle strength and tone were normal. EXTREMITIES: No cyanosis, clubbing or edema. NEUROLOGIC: Alert and oriented x 3. Normal affect. Strength is +5/5 in the Upper Extremities and Lower Extremities Bilaterally. Sensation to touch was normal. Objective Labs Result Diagrams: 05/11/19 05:10 05/11/19 05:10 Labs: Laboratory Results - last 24 hr 05/11/19 05/11/19 05/11/19 05:10 05:10 05:10 WBC 6.7 RBC 4.33 Hgb 13.2 Hct 39.8 MCV 91.9 MCH 30.4 MCHC 33.1 RDW 13.6 Plt Count 211 Neut % (Auto) 60.7 Lymph % (Auto) 22.9 L [place] % (Auto) 14.7 H Eos % (Auto) 1.0 L Baso % (Auto) 0.7 Neut # (Auto) 4100 Lymph # (Auto) 1500 [place] # (Auto) 1000 H Eos # (Auto) 100 Baso # (Auto) 0 Sodium 137 Potassium 3.5 Chloride 104 Carbon Dioxide 29 BUN 2 L Creatinine 0.58 Estimated GFR > 60.0 BUN/Creatinine Ratio 3.4 L Glucose 105 Calcium 8.7 Magnesium 1.3 L Total Bilirubin 0.5 Conjugated Bilirubin 0.0 Unconjugated Bilirubin 0.4 AST 35 ALT 31 Alkaline Phosphatase 80 Total Protein 6.4 Albumin 3.3 L Globulin 3.1 Albumin/Globulin Ratio 1.1 TSH 2.27 Discharge Plan Discharge Plan Patient Disposition: Home Discharge comment: You were admitted to the hospital with cough and shortness of breath as well as diarrhea. This is likely due to a viral syndrome but the exact cause was not found. You still have a pending COVID-19 test pending and this should come back in the next few days. While at home, please stay in isolation. Limit contact at home and be sure to read the handout provided for home care while being ruled out for COVID-19. You were prescribed zofran and imodium to help with symptoms. Discharge orders & Medications Prescriptions: New loperamide [Imodium A-D] 2 mg tablet 2 mg PO Q4H PRN (Reason: loose stool) Qty: 14 RF: 0 ondansetron 4 mg tablet,disintegrating 4 mg PO Q8H PRN (Reason: nausea and vomiting) Qty: 14 RF: 0 Continued atorvastatin 40 mg Tablet 40 mg PO QPM RF: 0 lisinopril 20 mg Tablet 20 mg PO DAILY RF: 0 glipizide 2.5 mg Tablet Extended Release 24hr 2.5 mg PO DAILY RF: 0 omeprazole 20 mg Capsule,Delayed Release(Dr/Ec) 20 mg PO BID RF: 0 fluoxetine 20 mg Capsule 20 mg PO BID RF: 0 metformin 500 mg Tablet Extended Release 24 Hr 1,000 mg PO QAM RF: 0 metoprolol tartrate 25 mg Tablet 25 mg PO BID RF: 0 cyclobenzaprine 10 mg tablet 10 mg PO TID PRN (Reason: muscle spasm) Qty: 20 RF: 0 nortriptyline 10 mg Capsule 10 mg PO BEDTIME RF: 0 exenatide microspheres 2 mg/0.85 mL Auto-Injector 2 mg SUBCUT QWEEK RF: 0 Follow up/Referrals: Dillon Castanon MD [Primary Care Provider] - (Please call to schedule your appointment.) Discharge Health Status Health Concerns: Viral syndrome, COVID 19 rule out Diet/Activity/Treatments Diet: Diet as Tolerated Diet comment: BRAT diet for a few days as you start to feel better Activity: As tolerated Visit Report/Discharge Packet Instructions: DI for Viral Syndrome Visit Report Forms: Patient Portal/API, Stroke Signs & Symptoms Discharge Data Primary Care Provider: Dillon Castanon Discharges patient from system. Discharge Date/Time: 05/11/19 13:05
[2019-05-11] MEDS: CEFTRIAXONE 1 GM/50 ML FROZ.PIGGY IV (11:36)
[2019-05-11 11:42] VITALS: BP 125/61; PULSE 80; RESP 18; TEMP 36.8; O2SAT 93
--- NOTE | 2019-05-11 13:04 | PC.NURSE ---
Pt discharged left via wheelchair escorted by to a private vehicle driven by .
[2019-05-13 17:09] LABS: COVID19 Sendout Not Detected (Not Detected)
== END 2019-05-11 13:05 | disposition home or self-care (01) | DRG 153 ==
LOC: ED 13:46 → AC 19:58
PROVIDERS: Internal Medicine; Admitting Provider Internal Medicine; Emergency Provider Nurse Practitioner Family; PCP Family Medicine; Referring Provider Emergency Medicine; Visit Provider Internal Medicine
DX: J06.9 Acute upper respiratory infection, unspecified (principal); N30.00 Acute cystitis without hematuria; I42.2 Other hypertrophic cardiomyopathy; R09.02 Hypoxemia; I25.10 Atherosclerotic heart disease of native coronary artery without angina pectoris; E11.9 Type 2 diabetes mellitus without complications; E78.5 Hyperlipidemia, unspecified; I10 Essential (primary) hypertension; R19.7 Diarrhea, unspecified; Z79.84 Long term (current) use of oral hypoglycemic drugs; Z03.818 Encounter for observation for suspected exposure to other biological agents ruled out
CPT/HCPCS: 36415; 71260; 74022; 74177; 80048; 80053; 80076; 81003; 81015; 82150; 82270; 82550; 82962; 83605; 83690; 83735; 83880; 84145; 84443; 84484; 85025; 85651; 86140; 87086; 87507; 87633; 93005; 93306; 93307; 94762; 96361; 96365; 96367; 96375; 96376; 99285; DELETED; J1170; J1650; J1940; J2405; Q9957

== ENCOUNTER → 2019-10-21 08:19 | Outpatient (CLI) | payer OTHER, MEDICARE, SELFPAY ==
[2019-05-08 21:37] VITALS: BMI 31.7
[2019-10-22 09:44] LABS: COVID19 Sendout Not Detected (Not Detect)
== END ==
PROVIDERS: PCP Family Medicine; Visit Provider Physician Assistant
DX: Z11.59 Encounter for screening for other viral diseases (principal)
CPT/HCPCS: 87635

== ENCOUNTER 2019-10-24 06:08 | Day surgery (SDC) | payer MEDICARE, OTHER, SELFPAY ==
[2019-05-08 21:37] VITALS: BMI 31.7
[2019-10-17 12:29] VITALS: BMI 35.3
[2019-10-24] VITALS (9 sets, daily range): BP systolic 101–147; BP diastolic 56–80; PULSE 70–85; RESP 12–22; TEMP 36.2–36.6; O2SAT 90–97; BMI 30.9
[2019-10-24] MEDS: LACTATED RINGERS 1,000 ML 100 ML IV ×2 (07:08→09:00)
--- NOTE | 2019-10-24 07:44 | PM.PREOP ---
Pre-operative Note COVID-19 COVID-19 status: Negative Result date/Date tested (Pos, Neg/Pending): 10/24/19 Interval Note History & Physical reviewed/Exam performed by Physician: Yes Changes to H&P: No
--- NOTE | 2019-10-24 07:44 | PM.OP.1 ---
Operative Date/Time/Diagnoses Date of procedure: 10/24/19 Time of procedure: 07:44 Pre-op diagnosis: Right Achilles tendon chronic rupture Post-op diagnosis: same Procedure & Clinicians Procedure: Right Achilles tendon delayed repair, graft placement Same procedure as scheduled: Yes Indications: Achilles tendon rupture late diagnosis per patient, and persistent instability, difficulty walking. Conservative measures failed to aid her recovery and stability and she wished to have surgical intervention at this time. We spoke of risks, potential complications, expected outcomes. Consent was signed, no contraindications to the procedure at this time. Surgeon: Loreto Horner Click Yes if Unassisted: Yes Anesthesia Type: General, Peripheral nerve block and Local Operative Notes Closure Type: primary Specimen(s): none sent Prosthetic devices, grafts, tissues, transplants, or devices: Achilles tendon cadaveric graft, Amnion matrix graft, Fiberwire, Fibertape, Vicryl Applied: cast(s) and graft(s) Estimated Blood Loss (mL): 20 Blood products transfused: none Tourniquet time (min): 104 Procedure in detail: After a lower extremity block was performed by Anesthesia in the preoperative holding area the patient was brought to the operating room. General anesthesia was performed. The tourniquet was placed about right thigh. Next she was carefully positioned prone on operative table, well padded and appropriately aligned. The foot and ankle were prepped and draped in the usual aseptic manner to both the left and right side. The tourniquet was inflated to the right thigh. After a check of anesthesia, incision was made on the posterior aspect of the right distal Achilles tendon just proximal to the insertion point of the Achilles to the heel. This was extended proximally to just above the site of rupture. The incision was deepened through subcutaneous tissues being careful to identify and retract all vital neural and vascular structures. All bleeders were cauterized and ligated as necessary. The paratenon surrounding the Achilles tendon was very rudimentary on the medial side but there was still some available laterally. What was available was gently opened and reflected and the ruptured portion of the Achilles tendon was noted. It appeared that there was some scar tissue that was mixed with medial remnant of Achilles segment that may have torn but repaired. But it was for the most part scar tissue. The edges of the Achilles ends were rounded and narrow. Once the scar tissue was excised from the central aspect as well as each end of the Achilles tendon, FiberWire was used to secure each portion the Achilles in a Krackow type formation. Next the Achilles tendon graft was checked and it was determined what segment was best to be used. This was the section removed from the graft and after the area was irrigated with normal saline the tendon was contoured to fit most appropriately. The tendon had to be thinned down a little in various places because of overlap with the existing portion of the tendon. Once this was deemed appropriate and enough tension was placed on this area appropriately, each end of the tendon was sewn in in a Krackow style technique on to the [place] tendon. Prior to the proximal side meeting the distal side, the foot was placed in gentle plantar flexion and the original tendon was brought forth and the sutures tied. Next the cadaveric tendon was placed in appropriate tension and sutured down. The ends of the cadaveric tendon were thinned to verify it sitting well, and vicryl was used to wrap the tendon to the other at the tips to make it flush along with additional security for stability. This showed good tension and strength. A portion of the distal central tendon needed to be thinned a little further to have it seat flush, and once this was done, it was repaired with vicryl in a way to have it seat more flat. Excess fiber tape was trimmed. The area was irrigated once again. The residual paratenon and some thin scar tissue was used to act as a cover to the Achilles and repaired with 3-0 Vicryl. The tourniquet was deflated. A prompt hyperemic response was seen to the foot and ankle. The Amnion graft was placed over the site. Subcutaneous closure was performed with Vicryl. Skin was closed with megha and she was placed in a sterile lightly compressive dressing and posterior splint. She was transferred to the PACU with vital signs stable and vascular status intact. Complications: none Post-operative Condition: stable Disposition: PACU Plan for aftercare: Following a period of postoperative monitoring, the patient be discharged home on written and oral postoperative instructions including keeping the dressing dry and intact, non-weightbearing to the foot, elevating the foot when seated home. DVT prevention techniques have been reviewed and she will start her lovenox inejctions tomorrow. For the 1st postoperative visit the dressing will be changed and close to the 3rd to 4th postoperative week we will likely remove the megha.
[2019-10-24] MEDS: MIDAZOLAM 2 MG/2 ML VIAL IV (08:07)
[2019-10-24] MEDS: fentaNYL 100 MCG/2 ML INJ 50 MCG IV ×2 (08:07→08:18)
[2019-10-24] MEDS: CEFAZOLIN 2 GM/100 ML FROZ.PIGGY IV (08:14)
--- NOTE | 2019-10-24 08:14 | SUR.PREOP ---
Block start time [0807] . Monitoring initiated and maintained throughout procedure. Oxygen and medications given per anesthesiologist instructions. Patient remained stable throughout procedure, no adverse reactions noted. Block end time [0812].
[2019-10-24] MEDS: LACTATED RINGERS 1,000 ML 42 ML IV (08:16)
--- NOTE | 2019-10-24 08:58 | SUR.OPER ---
Prone on padded OR bed, head in foam head support, gel chest rolls, gel pad under knees, blanket under lower right leg, toes free of pressure, arms secured on padded arm boards at <90 degrees abduction. Safety belt at thigh.
--- NOTE | 2019-10-24 11:45 | SUR.PHASEI ---
Pt received to PACU at 1121. Report received from circulating RN and Dr Mcintosh. Airway patent, self maintained. Pt able to wiggle right toes and distinguish touch.
--- NOTE | 2019-10-24 11:56 | SUR.PHASEI ---
1150 - Report given to Alexandria Dewitt RN. Pt transferred to Phase II, bay 3. Pt awake and alert. Tolerating ice chips. VSS.
[2019-10-24] MEDS: HYDROCODONE/ACET 5/325 TABLET 1 TAB PO (12:35)
--- NOTE | 2019-10-24 13:22 | SUR.PHASEII ---
sleeping, call light within reach, continuous pulse oximeter on, O2 sat 100% HR 62.
== END 2019-10-24 13:00 | disposition home or self-care (01) ==
PROVIDERS: PCP Family Medicine; Referring Provider Family Medicine; Visit Provider Podiatrist
PROC: (CPT 27650; principal; 2019-10-24 07:45)
DX: S86.011A Strain of right Achilles tendon, initial encounter (principal); I10 Essential (primary) hypertension; E11.9 Type 2 diabetes mellitus without complications; I25.10 Atherosclerotic heart disease of native coronary artery without angina pectoris; Z79.84 Long term (current) use of oral hypoglycemic drugs; Z86.718 Personal history of other venous thrombosis and embolism; Z79.01 Long term (current) use of anticoagulants
CPT/HCPCS: 27654; 64450; J0690; J2250; J2405; J2704; J3010